=== PATIENT | male | born 1980 | race Caucasian/White ===

== ENCOUNTER 2024-12-23 16:36 | Inpatient (IN) | payer OTHER, MEDICAID ==
[~2024-12-23] VITALS: Ht 177.8 cm; Wt 100.9 kg
[2024-12-23] MEDS: succinylcholine 20mg/ml inj IV ONE ×2 (16:52→18:08)
[2024-12-23 17:15] VITALS: PULSE 124; RESP 16; O2SAT 96
[2024-12-23 17:20] LABS: ETHANOL < 10 MG/DL (<10)
[2024-12-23 17:34] LABS: ABG BASE EXCESS -17.7 mmol/L (-2.0-3.0); ABG HCO3 8.3 mmol/L (21.0-28.0); ABG OXYGEN SATURATION 99.1 % (94.0-98.0); ABG PH (T) 7.177 (7.350-7.450); ABG PO2 (T) 181.1 mmHg (83.0-108.0); ALLEN'S TEST POSITIVE; FCOHb 0.3 % (0.5-1.5); FHHb 0.9 % (0.0-5.0); FMetHb 0.4 % (0.0-1.5); FO2Hb 98.4 % (94.0-98.0); MODE VENT - APRV; PATIENT TEMPERATURE 36.8; PEEP 5 cm H2O; TIDAL VOLUME 475 mL; TOTAL HEMOGLOBIN 20.2 G/dl (13.5-17.5)
[2024-12-23 17:49] LABS: BASOPHILS % (AUTO) 0.3 % (0-1); EOSINOPHILS % (AUTO) 0.2 % (0-6); HEMATOCRIT 53.5 % (42.0-52.0); LYMPHOCYTES # (AUTO) 1.9 X10'3 (1.1-4.8); LYMPHOCYTES % (AUTO) 12.2 % (21-51); MEAN CORPUSCULAR HEMOGLOBIN 32.8 PG (27.0-31.0); MEAN CORPUSCULAR HGB CONC 33.8 g/dL (33.0-36.5); MEAN PLATELET VOLUME 11.7 FL (7.4-10.4); MONOCYTES # (AUTO) 1.5 X10'3 (0-0.9); MONOCYTES % (AUTO) 9.3 % (2-12); NEUTROPHILS # (AUTO) 12.3 X10'3 (1.8-7.7); PLATELET COUNT 243 X10'3 (140-440); RED BLOOD COUNT 5.52 X10'6 (4.70-6.10); RED CELL DISTRIBUTION WIDTH 13.3 % (11.5-14.5); WHITE BLOOD COUNT 15.7 X10'3 (4.5-11.0)
[2024-12-23 17:53] LABS: HEMOGLOBIN 18.1 g/dl (14.0-17.9)
[2024-12-23] MEDS: FENTANYL-0.9 % NACL/PF 100 ML IV SCH (18:06)
[2024-12-23] MEDS: MIDAZolam 5mg/ml 2ml vial ONE (18:06)
[2024-12-23] MEDS: propofol 1000mg/100ml bottle 100 ML IV SCH (18:07)
[2024-12-23] MEDS: etomidate 2mg/ml inj. IV ONE (18:08)
[2024-12-23] MEDS: NORepinephrine 8mg/ 250ml NS 250 ML IV PRN (18:09)
[2024-12-23] MEDS ORDERED: iohexol 350MG/ML 100ml bottle IV ONE (18:30)
[2024-12-23 18:39] LABS: ALANINE AMINOTRANSFERASE 305 U/L (12-78); ALBUMIN/GLOBULIN RATIO 0.9 (1.1-1.5); ALKALINE PHOSPHATASE 125 IU/L (46-116); ANION GAP 26 (8-16); BILIRUBIN,TOTAL 2.2 MG/DL (0.1-1.0); BLOOD UREA NITROGEN 28 MG/DL (7-18); BUN/CREATININE RATIO 5.9 (10.0-20.0); CHLORIDE 98 MMOL/L (99-107); CREATININE 4.78 MG/DL (0.60-1.10); GLUCOSE 338 MG/DL (70-104); SODIUM 137 MMOL/L (135-145); TOTAL PROTEIN 6.3 G/DL (6.4-8.2); eCRCL 20 ML/MIN; eGFR 13 ML/MIN
[2024-12-23 18:45] LABS: ASPARTATE AMINO TRANSFERASE 221 U/L (10-37); POTASSIUM 4.4 MMOL/L (3.5-5.1)
[2024-12-23 18:52] LABS: TOTAL CARBON DIOXIDE 13.1 MMOL/L (24-32)
[2024-12-23 19:58] LABS: CALCIUM < 5.0 MG/DL (8.5-10.1)
[2024-12-23] MEDS ORDERED: calcium gluconate inj. 2 GM in normal saline 100ml IV soln 100 ML IV ONE (20:00)
[2024-12-23] MEDS ORDERED: VANCOMYCIN 1,500MG inj. 1,500 MG in normal saline 500ml IV soln 300 ML IV SCH (20:00)
[2024-12-23] MEDS ORDERED: cefepime 2g/NS 100ml ADVANTAGE 100 ML IV SCH (20:00)
[2024-12-23 20:03] LABS: C-REACTIVE PROTEIN 14.61 MG/DL (0.0-0.5); CREATINE KINASE MB 6.7 ng/ml (0.3-3.6)
[2024-12-23 20:07] LABS: BILIRUBIN,URINE SMALL (Neg); CLARITY,URINE CLOUDY (Clear); COLOR,URINE YELLOW (Yellow); GLUCOSE, URINE NEGATIVE (Neg); KETONES,URINE TRACE mg/dl (Neg); LEUKOCYTE ESTERASE ,URINE NEGATIVE (Neg); OCCULT BLOOD,URINE LARGE (Neg); PROTEIN,URINE 100 mg/dl (Neg); UROBILINOGEN,URINE 0.2 E.U/dL (0.2-1.0)
[2024-12-23] MEDS: calcium chloride 100 MG/1 ML inj IV STA (20:08)
[2024-12-23] MEDS: CALCIUM GLUC 1gm/50ml NACL,iso 50 ML IV SCH (20:10)
[2024-12-23] MEDS: VANCOMYCIN 1.75GM/WATER FOR INJ (PEG) 350 ML IVPB IV ONE (20:13)
[2024-12-23 20:15] LABS: APTT 28 SECONDS (22-32); INR 1.3 INR; PROTHROMBIN TIME 13.2 SECONDS (9.0-12.0)
[2024-12-23 20:15] LABS: URINE AMPHETAMINE SCREEN NEGATIVE (Neg); URINE BARBITUATE SCREEN NEGATIVE (Neg); URINE BENZODIAZEPINES SCREEN NEGATIVE (Neg); URINE CANNABINOID SCREEN NEGATIVE (Neg); URINE COCAINE SCREEN NEGATIVE (Neg); URINE METHADONE SCREEN NEGATIVE (Neg); URINE OPIATE SCREEN NEGATIVE (Neg); URINE PHENCYCLIDINE SCREEN NEGATIVE (Neg)
[2024-12-23] MEDS: CEFEPIME 2gm in D5W 50mL 50 ML IV SCH (20:16)
[2024-12-23 20:21] VITALS: BP 117/83; PULSE 106; RESP 22; O2SAT 97
[2024-12-23 20:29] LABS: NITRITES, URINE NEGATIVE (Neg)
[2024-12-23 20:33] LABS: AMORPHOUS URATES 3+; BACTERIA,URINE 2+ /HPF (Neg); SQUAMOUS EPITHELIAL CELL,UR MODERATE /LPF (FEW); UA COLLECTION TYPE FOLEY CATH; WBC,URINE 0-4 /HPF (0-4)
[2024-12-23 20:34] LABS: FINE GRANULAR CAST 0-3 /LPF (NEGATIVE)
[2024-12-23 20:41] LABS: CREATINE KINASE 691 U/L (39-308); LIPASE > 375 U/L (16-77)
[2024-12-23] MEDS ORDERED: piperacillin/tazo 3.375gm/50ml 50 ML IV SCH (20:45)
[2024-12-23] MEDS: SODIUM BICARBONATE 150MEQ IN D5W 1,000 ML IV SCH (21:38)
[2024-12-23] MEDS: piperacillin/tazo 3.375gm/50ml 50 ML IV SCH (21:44)
[2024-12-23 22:25] LABS: APTT 27 SECONDS (22-32); D-DIMER 9.74 MG/L FEU (0-0.50); FIBRINOGEN 361 MG/DL (177-424); INR 1.2 INR; PROTHROMBIN TIME 12.2 SECONDS (9.0-12.0)
[2024-12-23 22:38] LABS: PLATELET COUNT 210 X10'3 (140-440)
[2024-12-23 23:15] VITALS: BP 97/71; PULSE 121; RESP 26; O2SAT 93
[2024-12-23] MEDS ORDERED: NORepinephrine 8 MG in NS 250 ML BAG (32 mcg/ml) IV ONE (23:30)
[2024-12-24] VITALS (17 sets, daily range): BP systolic 82–130; BP diastolic 38–71; PULSE 95–126; RESP 17–27; O2SAT 91–98
[2024-12-24] MEDS: sodium phosphate inj. 30 MMOL in dextrose 5%-water 250 ML IV ONE (00:25)
[2024-12-24] MEDS: acetaminophen 1,000mg/100ml IV 100 ML IV ONE ×2 (00:50→09:45)
[2024-12-24] MEDS: ringers solution, lacted 1,000 ML IV ONE ×3 (00:52→05:15)
[2024-12-24] MEDS: normal saline 1000ml 1,000 ML IV ONE ×4 (01:34→03:06)
[2024-12-24] MEDS: normal saline 1000ml 1,000 ML IV SCH (01:51)
[2024-12-24 02:11] LABS: MAGNESIUM 1.6 MG/DL (1.5-2.4)
[2024-12-24] MEDS: ringers solution, lacted 1,000 ML IV SCH (03:05)
[2024-12-24 03:52] LABS: ABG BASE EXCESS -12.5 mmol/L (-2.0-3.0); ABG OXYGEN SATURATION 96.8 % (94.0-98.0); ABG PCO2 (T) 29.9 mmHg (35.0-48.0); ABG PH (T) 7.258 (7.350-7.450); ABG PO2 (T) 96.4 mmHg (83.0-108.0); FCOHb 0.6 % (0.5-1.5); FHHb 3.2 % (0.0-5.0); FMetHb 0.3 % (0.0-1.5); FO2Hb 95.9 % (94.0-98.0); MODE ac/prvc; PATIENT TEMPERATURE 37.3; PEEP 5 cm H2O; RESPIRATORY RATE 16 b/min; TIDAL VOLUME 475 mL; TOTAL HEMOGLOBIN 14.6 G/dl (13.5-17.5)
[2024-12-24 05:32] LABS: MEAN PLATELET VOLUME 11.4 FL (7.4-10.4); MONOCYTES # (AUTO) 0.7 X10'3 (0-0.9); NEUTROPHILS # (AUTO) 5.9 X10'3 (1.8-7.7)
[2024-12-24 05:33] LABS: BASOPHILS % (AUTO) 0.3 % (0-1); EOSINOPHILS % (AUTO) 0.3 % (0-6); HEMATOCRIT 41.6 % (42.0-52.0); HEMOGLOBIN 14.6 g/dl (14.0-17.9); LYMPHOCYTES # (AUTO) 1.2 X10'3 (1.1-4.8); LYMPHOCYTES % (AUTO) 14.7 % (21-51); MEAN CORPUSCULAR HEMOGLOBIN 33.5 PG (27.0-31.0); MEAN CORPUSCULAR HGB CONC 35.1 g/dL (33.0-36.5); MEAN CORPUSCULAR VOLUME 95.5 FL (78-98); MONOCYTES % (AUTO) 9.3 % (2-12); NEUTROPHILS % (AUTO) 75.4 % (42-75); PLATELET COUNT 125 X10'3 (140-440); RED BLOOD COUNT 4.36 X10'6 (4.70-6.10); RED CELL DISTRIBUTION WIDTH 13.3 % (11.5-14.5); WHITE BLOOD COUNT 7.8 X10'3 (4.5-11.0)
[2024-12-24 05:55] LABS: ALANINE AMINOTRANSFERASE 281 U/L (12-78); ALBUMIN 1.9 G/DL (3.4-5.0); ALBUMIN/GLOBULIN RATIO 0.8 (1.1-1.5); ALKALINE PHOSPHATASE 72 IU/L (46-116); ANION GAP 12 (8-16); BILIRUBIN,TOTAL 1.8 MG/DL (0.1-1.0); BLOOD UREA NITROGEN 37 MG/DL (7-18); BUN/CREATININE RATIO 8.6 (10.0-20.0); CHLORIDE 106 MMOL/L (99-107); CREATININE 4.31 MG/DL (0.60-1.10); GLUCOSE 292 MG/DL (70-104); SODIUM 135 MMOL/L (135-145); TOTAL CARBON DIOXIDE 17.3 MMOL/L (24-32); TOTAL PROTEIN 4.2 G/DL (6.4-8.2); eCRCL 22 ML/MIN; eGFR 15 ML/MIN
[2024-12-24 06:19] LABS: CREATINE KINASE MB 32.1 ng/ml (0.3-3.6)
[2024-12-24 06:34] LABS: ASPARTATE AMINO TRANSFERASE 262 U/L (10-37); POTASSIUM 3.8 MMOL/L (3.5-5.1)
[2024-12-24 06:38] LABS: CALCIUM < 5.0 MG/DL (8.5-10.1)
[2024-12-24] MEDS ORDERED: calcium gluconate inj. 3 GM in normal saline 100ml IV soln 100 ML IV ONE (06:50)
[2024-12-24 06:52] LABS: LARGE PLATELETS FEW; PLATELET ESTIMATE DECREASED; TOTAL CELLS COUNTED 100
[2024-12-24 06:53] LABS: BURR CELLS 1+; TOXIC VACUOLATION FEW
[2024-12-24 07:05] LABS: CREATINE KINASE 3124 U/L (39-308)
[2024-12-24] MEDS: magnesium sulf-water 2g/50mL 50 ML IV ONE (07:10)
[2024-12-24] MEDS ORDERED: CALCIUM GLUC 1gm/50ml NACL,iso 50 ML IV SCH (07:20)
[2024-12-24] MEDS ORDERED: NO HOME MEDS (07:24)
[2024-12-24] MEDS: calcium gluconate inj. 3 GM in normal saline 100ml IV soln 100 ML IV ONE (07:34)
[2024-12-24] MEDS: calcium chloride inj. 1,000 MG in normal saline 100ml IV soln 100 ML IV ONE (08:42)
[2024-12-24] MEDS: LIDOcaine 1% W/epiNEPHrine 1:100,000 20ml vial SQ ONE (10:28)
[2024-12-24 10:57] LABS: ANION GAP 14 (8-16); BLOOD UREA NITROGEN 39 MG/DL (7-18); BUN/CREATININE RATIO 8.2 (10.0-20.0); CHLORIDE 102 MMOL/L (99-107); CREATININE 4.78 MG/DL (0.60-1.10); GLUCOSE 329 MG/DL (70-104); SODIUM 134 MMOL/L (135-145); TOTAL CARBON DIOXIDE 17.7 MMOL/L (24-32); eCRCL 20 ML/MIN; eGFR 13 ML/MIN
[2024-12-24 11:08] LABS: POTASSIUM 3.6 MMOL/L (3.5-5.1)
[2024-12-24 11:10] LABS: CALCIUM < 5.0 MG/DL (8.5-10.1)
[2024-12-24] MEDS: fentaNYL/PF 50MCG/1 ML 2ML syringe IV PRN (11:25)
[2024-12-24] MEDS ORDERED: acetaminophen 1,000mg/100ml IV 100 ML IV SCH (14:00)
[2024-12-24] MEDS: CIPROFLOXACIN 400MG/200ML premix IV SCH (14:24)
[2024-12-24] MEDS: pantoprazole 40 MG vial IV SCH (14:50)
[2024-12-24] MEDS ORDERED: magnesium Cl slow-release 64mg tablet PO PRN (15:00)
[2024-12-24] MEDS ORDERED: magnesium sulf-water 4G/100mL 100 ML IV PRN (15:00)
[2024-12-24] MEDS ORDERED: acetaminophen 325mg tablet PO PRN (15:00)
[2024-12-24] MEDS ORDERED: potassium Cl 20 mEq SR tablet PO PRN ×2 (15:00)
[2024-12-24] MEDS ORDERED: magnesium hydroxide 30ml (MOM) UD suspension PO PRN (15:00)
[2024-12-24] MEDS ORDERED: potassium Cl 40MEQ/1/2NS 520ml 520 ML IV PRN (15:00)
[2024-12-24] MEDS ORDERED: mag hydrox/Alum hydrox/simeth 30ml oral suspension PO PRN (15:00)
[2024-12-24] MEDS ORDERED: magnesium sulf-water 2g/50mL 50 ML IV PRN (15:00)
[2024-12-24] MEDS ORDERED: ondansetron/PF 4mg/2ml inj IV PRN (15:00)
[2024-12-24] MEDS ORDERED: morphine 2 MG/ML inj. syringe IV PRN ×2 (15:00)
[2024-12-24] MEDS ORDERED: MEROPENEM 1GM/NACL 50ML IVPB 50 ML IV SCH (16:00)
[2024-12-24] MEDS ORDERED: metroNIDAZOLE-Flagyl 500mg/NS 100 ML IV SCH (16:00)
[2024-12-24] MEDS: heparin, porcine 5000 units/ml vial SQ SCH (16:01)
[2024-12-24 16:16] LABS: ALBUMIN 1.8 G/DL (3.4-5.0); BLOOD UREA NITROGEN 43 MG/DL (7-18); CREATININE 5.38 MG/DL (0.60-1.10); GLUCOSE 366 MG/DL (70-104); TOTAL CARBON DIOXIDE 19.6 MMOL/L (24-32); eCRCL 18 ML/MIN; eGFR 12 ML/MIN
[2024-12-24 16:22] LABS: ANION GAP 14 (8-16); CHLORIDE 100 MMOL/L (99-107); SODIUM 134 MMOL/L (135-145)
[2024-12-24 16:24] LABS: POTASSIUM 3.3 MMOL/L (3.5-5.1)
[2024-12-24 16:27] LABS: CALCIUM < 5.0 MG/DL (8.5-10.1)
[2024-12-24] MEDS: docusate sod 100mg capsule PO SCH (18:50)
[2024-12-24] MEDS: K and/or MAG REPLACEMENT MC SCH (18:50)
[2024-12-24] MEDS ORDERED: glucagon, human recombinant 1mg kit SUBCUT PRN (19:10)
[2024-12-24] MEDS ORDERED: DEXTROSE 15 GM of carb/4 tabs (each vial/BOTTLE has 4 tablets) PO PRN ×2 (19:10)
[2024-12-24] MEDS ORDERED: dextrose 50%-water 50ml dispensing syringe IV PRN ×2 (19:10)
[2024-12-24] MEDS ORDERED: calcium chloride inj. 10,000 MG in normal saline 500ml IV soln 400 ML IV PRN (19:15)
[2024-12-24] MEDS ORDERED: BICARB DIALYSIS 4K/3 Ca2+sol 5,000 ML HE SCH (19:15)
[2024-12-24 19:34] LABS: EOSINOPHILS % (AUTO) 0.1 % (0-6); HEMOGLOBIN 14.3 g/dl (14.0-17.9); NEUTROPHILS # (AUTO) 16.7 X10'3 (1.8-7.7)
[2024-12-24 19:36] LABS: BASOPHILS % (AUTO) 0.1 % (0-1); HEMATOCRIT 41.8 % (42.0-52.0); LYMPHOCYTES # (AUTO) 0.8 X10'3 (1.1-4.8); LYMPHOCYTES % (AUTO) 4.5 % (21-51); MEAN CORPUSCULAR HEMOGLOBIN 32.9 PG (27.0-31.0); MEAN CORPUSCULAR HGB CONC 34.3 g/dL (33.0-36.5); MEAN PLATELET VOLUME 11.5 FL (7.4-10.4); MONOCYTES # (AUTO) 1.4 X10'3 (0-0.9); MONOCYTES % (AUTO) 7.2 % (2-12); NEUTROPHILS % (AUTO) 88.1 % (42-75); PLATELET COUNT 162 X10'3 (140-440); RED BLOOD COUNT 4.35 X10'6 (4.70-6.10); RED CELL DISTRIBUTION WIDTH 13.3 % (11.5-14.5)
[2024-12-24 19:47] LABS: APTT 33 SECONDS (22-32); INR 1.3 INR; PROTHROMBIN TIME 13.4 SECONDS (9.0-12.0)
[2024-12-24 19:49] LABS: ALANINE AMINOTRANSFERASE 290 U/L (12-78); ALBUMIN 1.7 G/DL (3.4-5.0); ALBUMIN/GLOBULIN RATIO 0.6 (1.1-1.5); ALKALINE PHOSPHATASE 82 IU/L (46-116); ANION GAP 15 (8-16); BLOOD UREA NITROGEN 44 MG/DL (7-18); BUN/CREATININE RATIO 7.7 (10.0-20.0); CHLORIDE 100 MMOL/L (99-107); CREATININE 5.68 MG/DL (0.60-1.10); GLUCOSE 319 MG/DL (70-104); SODIUM 133 MMOL/L (135-145); TOTAL CARBON DIOXIDE 18.2 MMOL/L (24-32); TOTAL PROTEIN 4.5 G/DL (6.4-8.2); eCRCL 17 ML/MIN; eGFR 11 ML/MIN
[2024-12-24] MEDS ORDERED: VANCOMYCIN/WATER FOR INJ (PEG) 750MG/150 ML IVPB IV SCH (20:00)
[2024-12-24 20:01] LABS: MAGNESIUM 1.5 MG/DL (1.5-2.4)
[2024-12-24 20:06] LABS: TOTAL CELLS COUNTED 100
[2024-12-24 20:07] LABS: BURR CELLS 2+; LARGE PLATELETS FEW; PLATELET ESTIMATE NORMAL
[2024-12-24 20:08] LABS: ASPARTATE AMINO TRANSFERASE 297 U/L (10-37); POTASSIUM 3.7 MMOL/L (3.5-5.1)
[2024-12-24 20:09] LABS: HEMOGLOBIN A1C 5.3 % (4.5-6.2)
[2024-12-24] MEDS: magnesium sulf-water 4G/100mL 100 ML IV PRN (20:15)
[2024-12-24] MEDS: MEROPENEM 500MG/50ML-NS IVPB 50 ML IV SCH (20:21)
[2024-12-24 20:26] LABS: AMYLASE 30 U/L (25-115); CREATINE KINASE 389 U/L (39-308)
[2024-12-24 20:29] LABS: CALCIUM < 5.0 MG/DL (8.5-10.1)
[2024-12-24 20:30] LABS: LIPASE > 375 U/L (16-77)
[2024-12-24] MEDS: calcium chloride inj. 1,000 MG in normal saline 100ml IV soln 100 ML IV PRN (20:32)
[2024-12-24 21:18] LABS: ABG HCO3 15.7 mmol/L (21.0-28.0); ABG OXYGEN SATURATION 96.9 % (94.0-98.0); ABG PCO2 (T) 45.1 mmHg (35.0-48.0); ABG PH (T) 7.156 (7.350-7.450); FCOHb 1.1 % (0.5-1.5); FHHb 3.1 % (0.0-5.0); FO2Hb 95.8 % (94.0-98.0); MODE ac/prvc; PATIENT TEMPERATURE 36.3; PEEP 5 cm H2O; RESPIRATORY RATE 16 b/min; TIDAL VOLUME 475 mL; TOTAL HEMOGLOBIN 14.6 G/dl (13.5-17.5)
[2024-12-24] MEDS: insulin glargine (Lantus) pen - multi-dose SQ SCH (21:27)
[2024-12-24 22:25] LABS: BASOPHILS % (AUTO) 0.1 % (0-1); EOSINOPHILS % (AUTO) 0 % (0-6); HEMATOCRIT 42.1 % (42.0-52.0); HEMOGLOBIN 14.3 g/dl (14.0-17.9); LYMPHOCYTES # (AUTO) 0.6 X10'3 (1.1-4.8); LYMPHOCYTES % (AUTO) 3.3 % (21-51); MEAN CORPUSCULAR HEMOGLOBIN 32.5 PG (27.0-31.0); MEAN CORPUSCULAR HGB CONC 33.9 g/dL (33.0-36.5); MEAN CORPUSCULAR VOLUME 96.1 FL (78-98); MONOCYTES # (AUTO) 1.1 X10'3 (0-0.9); MONOCYTES % (AUTO) 6.3 % (2-12); NEUTROPHILS # (AUTO) 16.4 X10'3 (1.8-7.7); NEUTROPHILS % (AUTO) 90.3 % (42-75); PLATELET COUNT 171 X10'3 (140-440); RED BLOOD COUNT 4.38 X10'6 (4.70-6.10); RED CELL DISTRIBUTION WIDTH 13.7 % (11.5-14.5); WHITE BLOOD COUNT 18.1 X10'3 (4.5-11.0)
[2024-12-24 22:32] LABS: ALBUMIN 1.8 G/DL (3.4-5.0); ANION GAP 13 (8-16); BLOOD UREA NITROGEN 42 MG/DL (7-18); BUN/CREATININE RATIO 8.3 (10.0-20.0); CHLORIDE 101 MMOL/L (99-107); CREATININE 5.04 MG/DL (0.60-1.10); GLUCOSE 309 MG/DL (70-104); MAGNESIUM 2.4 MG/DL (1.5-2.4); SODIUM 134 MMOL/L (135-145); TOTAL CARBON DIOXIDE 19.8 MMOL/L (24-32); eCRCL 19 ML/MIN; eGFR 12 ML/MIN
[2024-12-24 22:36] LABS: PHOSPHORUS 4.3 MG/DL (2.3-4.5); POTASSIUM 3.8 MMOL/L (3.5-5.1)
[2024-12-24] MEDS: INSULIN LISPRO 100 UNIT/ML INSULN.PEN MULTI-DOSE SQ SCH (22:36)
[2024-12-24 22:43] LABS: CALCIUM CVVH 4.6 MG/DL (8.5-10.1)
[2024-12-24 22:44] LABS: CALCIUM < 5.0 MG/DL (8.5-10.1)
[2024-12-24 23:21] LABS: BASOPHILS # (AUTO) 0.1 X10'3 (0-0.2); BASOPHILS % (AUTO) 0.3 % (0-1); EOSINOPHILS % (AUTO) 0 % (0-6); HEMATOCRIT 43.4 % (42.0-52.0); HEMOGLOBIN 14.7 g/dl (14.0-17.9); LYMPHOCYTES # (AUTO) 0.6 X10'3 (1.1-4.8); LYMPHOCYTES % (AUTO) 3.2 % (21-51); MEAN CORPUSCULAR HEMOGLOBIN 32.7 PG (27.0-31.0); MEAN CORPUSCULAR HGB CONC 33.9 g/dL (33.0-36.5); MEAN CORPUSCULAR VOLUME 96.5 FL (78-98); MEAN PLATELET VOLUME 11.3 FL (7.4-10.4); MONOCYTES # (AUTO) 1.3 X10'3 (0-0.9); MONOCYTES % (AUTO) 6.5 % (2-12); NEUTROPHILS # (AUTO) 17.8 X10'3 (1.8-7.7); PLATELET COUNT 167 X10'3 (140-440); RED CELL DISTRIBUTION WIDTH 13.4 % (11.5-14.5); WHITE BLOOD COUNT 19.8 X10'3 (4.5-11.0)
[2024-12-24 23:39] LABS: ALBUMIN 1.8 G/DL (3.4-5.0); ANION GAP 15 (8-16); BLOOD UREA NITROGEN 38 MG/DL (7-18); BUN/CREATININE RATIO 7.7 (10.0-20.0); CHLORIDE 99 MMOL/L (99-107); CREATININE 4.95 MG/DL (0.60-1.10); GLUCOSE 296 MG/DL (70-104); MAGNESIUM 2.1 MG/DL (1.5-2.4); PHOSPHORUS 4.4 MG/DL (2.3-4.5); POTASSIUM 3.9 MMOL/L (3.5-5.1); SODIUM 133 MMOL/L (135-145); TOTAL CARBON DIOXIDE 19.1 MMOL/L (24-32); eGFR 13 ML/MIN
[2024-12-24 23:48] LABS: CALCIUM CVVH 4.3 MG/DL (8.5-10.1)
[2024-12-25] VITALS (39 sets, daily range): BP systolic 92–121; BP diastolic 38–60; PULSE 100–115; RESP 12–27; TEMP 96.2–97.1; O2SAT 85–97
[2024-12-25 00:24] LABS: BASOPHILS % (AUTO) 0.2 % (0-1); EOSINOPHILS % (AUTO) 0.1 % (0-6); HEMATOCRIT 41.6 % (42.0-52.0); HEMOGLOBIN 14.2 g/dl (14.0-17.9); LYMPHOCYTES # (AUTO) 0.8 X10'3 (1.1-4.8); LYMPHOCYTES % (AUTO) 4.4 % (21-51); MEAN CORPUSCULAR HEMOGLOBIN 32.7 PG (27.0-31.0); MEAN CORPUSCULAR HGB CONC 34.1 g/dL (33.0-36.5); MEAN CORPUSCULAR VOLUME 96.1 FL (78-98); MEAN PLATELET VOLUME 11.3 FL (7.4-10.4); MONOCYTES # (AUTO) 1.3 X10'3 (0-0.9); MONOCYTES % (AUTO) 6.9 % (2-12); NEUTROPHILS # (AUTO) 16.1 X10'3 (1.8-7.7); NEUTROPHILS % (AUTO) 88.4 % (42-75); PLATELET COUNT 155 X10'3 (140-440); RED BLOOD COUNT 4.33 X10'6 (4.70-6.10); RED CELL DISTRIBUTION WIDTH 13.5 % (11.5-14.5); WHITE BLOOD COUNT 18.2 X10'3 (4.5-11.0)
[2024-12-25 00:37] LABS: ALBUMIN 1.7 G/DL (3.4-5.0); ANION GAP 12 (8-16); BLOOD UREA NITROGEN 39 MG/DL (7-18); BUN/CREATININE RATIO 8.1 (10.0-20.0); CHLORIDE 102 MMOL/L (99-107); CREATININE 4.81 MG/DL (0.60-1.10); GLUCOSE 278 MG/DL (70-104); MAGNESIUM 2.1 MG/DL (1.5-2.4); SODIUM 135 MMOL/L (135-145); TOTAL CARBON DIOXIDE 20.6 MMOL/L (24-32); eGFR 13 ML/MIN
[2024-12-25 00:41] LABS: PHOSPHORUS 4.5 MG/DL (2.3-4.5); POTASSIUM 3.7 MMOL/L (3.5-5.1)
[2024-12-25 00:46] LABS: CALCIUM CVVH 5.4 MG/DL (8.5-10.1)
[2024-12-25 01:15] LABS: PLATELET ESTIMATE NORMAL; TOTAL CELLS COUNTED 100
[2024-12-25 01:16] LABS: BURR CELLS 2+; LARGE PLATELETS FEW
[2024-12-25 01:31] LABS: BASOPHILS % (AUTO) 0.1 % (0-1); EOSINOPHILS % (AUTO) 0 % (0-6); HEMATOCRIT 43.3 % (42.0-52.0); HEMOGLOBIN 14.9 g/dl (14.0-17.9); LYMPHOCYTES # (AUTO) 0.7 X10'3 (1.1-4.8); LYMPHOCYTES % (AUTO) 3.8 % (21-51); MEAN CORPUSCULAR HEMOGLOBIN 32.8 PG (27.0-31.0); MEAN CORPUSCULAR HGB CONC 34.3 g/dL (33.0-36.5); MEAN CORPUSCULAR VOLUME 95.6 FL (78-98); MEAN PLATELET VOLUME 10.8 FL (7.4-10.4); MONOCYTES # (AUTO) 1.1 X10'3 (0-0.9); NEUTROPHILS # (AUTO) 17.1 X10'3 (1.8-7.7); NEUTROPHILS % (AUTO) 90.1 % (42-75); PLATELET COUNT 147 X10'3 (140-440); RED BLOOD COUNT 4.53 X10'6 (4.70-6.10); RED CELL DISTRIBUTION WIDTH 13.8 % (11.5-14.5); WHITE BLOOD COUNT 18.9 X10'3 (4.5-11.0)
[2024-12-25 01:50] LABS: ALBUMIN 1.8 G/DL (3.4-5.0); ANION GAP 15 (8-16); BLOOD UREA NITROGEN 35 MG/DL (7-18); BUN/CREATININE RATIO 7.3 (10.0-20.0); CHLORIDE 100 MMOL/L (99-107); CREATININE 4.79 MG/DL (0.60-1.10); GLUCOSE 265 MG/DL (70-104); SODIUM 133 MMOL/L (135-145); TOTAL CARBON DIOXIDE 17.7 MMOL/L (24-32); eGFR 13 ML/MIN
[2024-12-25 01:53] LABS: PHOSPHORUS 5.2 MG/DL (2.3-4.5); POTASSIUM 3.8 MMOL/L (3.5-5.1)
[2024-12-25 01:58] LABS: CALCIUM CVVH 4.9 MG/DL (8.5-10.1)
[2024-12-25] MEDS: sodium chloride 3% IV.soln 500 ML IV SCH (02:39)
[2024-12-25 03:03] LABS: ABG BASE EXCESS -10.8 mmol/L (-2.0-3.0); ABG HCO3 15.7 mmol/L (21.0-28.0); ABG PH (T) 7.253 (7.350-7.450); ABG PO2 (T) 72.7 mmHg (83.0-108.0); FCOHb 1.8 % (0.5-1.5); FHHb 3.9 % (0.0-5.0); FMetHb 0.3 % (0.0-1.5); MODE ac/prvc; PATIENT TEMPERATURE 36.1; PEEP 5 cm H2O; RESPIRATORY RATE 20 b/min; TIDAL VOLUME 475 mL; TOTAL HEMOGLOBIN 15.6 G/dl (13.5-17.5)
[2024-12-25 03:21] LABS: RED CELL DISTRIBUTION WIDTH 13.9 % (11.5-14.5); WHITE BLOOD COUNT 18.4 X10'3 (4.5-11.0)
[2024-12-25 03:22] LABS: BASOPHILS % (AUTO) 0.1 % (0-1); EOSINOPHILS % (AUTO) 0 % (0-6); HEMATOCRIT 45.8 % (42.0-52.0); HEMOGLOBIN 15.7 g/dl (14.0-17.9); LYMPHOCYTES # (AUTO) 0.6 X10'3 (1.1-4.8); LYMPHOCYTES % (AUTO) 3.3 % (21-51); MEAN CORPUSCULAR HGB CONC 34.3 g/dL (33.0-36.5); MEAN CORPUSCULAR VOLUME 96.1 FL (78-98); MEAN PLATELET VOLUME 11.6 FL (7.4-10.4); MONOCYTES # (AUTO) 1.1 X10'3 (0-0.9); MONOCYTES % (AUTO) 6.1 % (2-12); NEUTROPHILS # (AUTO) 16.6 X10'3 (1.8-7.7); NEUTROPHILS % (AUTO) 90.5 % (42-75); PLATELET COUNT 151 X10'3 (140-440); RED BLOOD COUNT 4.76 X10'6 (4.70-6.10)
[2024-12-25 04:13] LABS: ALBUMIN 1.9 G/DL (3.4-5.0); ANION GAP 15 (8-16); BLOOD UREA NITROGEN 34 MG/DL (7-18); BUN/CREATININE RATIO 7.6 (10.0-20.0); CHLORIDE 100 MMOL/L (99-107); CREATININE 4.49 MG/DL (0.60-1.10); GLUCOSE 233 MG/DL (70-104); SODIUM 133 MMOL/L (135-145); TOTAL CARBON DIOXIDE 18.4 MMOL/L (24-32); eCRCL 21 ML/MIN; eGFR 14 ML/MIN
[2024-12-25 04:43] LABS: CALCIUM 5.7 MG/DL (8.5-10.1); PHOSPHORUS 4.2 MG/DL (2.3-4.5); POTASSIUM 3.6 MMOL/L (3.5-5.1)
[2024-12-25 04:44] LABS: CALCIUM CVVH 5.7 MG/DL (8.5-10.1)
[2024-12-25] MEDS: BICARB DIALYSIS 4K/3 Ca2+sol 5,000 ML HE SCH (04:58)
[2024-12-25 08:44] LABS: BASOPHILS % (AUTO) 0.1 % (0-1); EOSINOPHILS % (AUTO) 0.2 % (0-6); HEMATOCRIT 44.6 % (42.0-52.0); HEMOGLOBIN 15.1 g/dl (14.0-17.9); LYMPHOCYTES # (AUTO) 0.7 X10'3 (1.1-4.8); LYMPHOCYTES % (AUTO) 3.7 % (21-51); MEAN CORPUSCULAR HEMOGLOBIN 32.6 PG (27.0-31.0); MEAN CORPUSCULAR HGB CONC 33.9 g/dL (33.0-36.5); MEAN PLATELET VOLUME 10.3 FL (7.4-10.4); MONOCYTES # (AUTO) 1.1 X10'3 (0-0.9); MONOCYTES % (AUTO) 6.1 % (2-12); NEUTROPHILS # (AUTO) 16.5 X10'3 (1.8-7.7); NEUTROPHILS % (AUTO) 89.9 % (42-75); PLATELET COUNT 102 X10'3 (140-440); RED BLOOD COUNT 4.65 X10'6 (4.70-6.10); RED CELL DISTRIBUTION WIDTH 13.5 % (11.5-14.5); WHITE BLOOD COUNT 18.4 X10'3 (4.5-11.0)
[2024-12-25] MEDS: potassium Cl 40MEQ/270ML bag 270 ML IV PRN (08:46)
[2024-12-25 08:54] LABS: ALBUMIN 1.9 G/DL (3.4-5.0); ANION GAP 11 (8-16); BLOOD UREA NITROGEN 30 MG/DL (7-18); BUN/CREATININE RATIO 7.8 (10.0-20.0); CHLORIDE 103 MMOL/L (99-107); CREATININE 3.83 MG/DL (0.60-1.10); GLUCOSE 213 MG/DL (70-104); MAGNESIUM 1.9 MG/DL (1.5-2.4); PHOSPHORUS 4.3 MG/DL (2.3-4.5); POTASSIUM 3.6 MMOL/L (3.5-5.1); SODIUM 138 MMOL/L (135-145); TOTAL CARBON DIOXIDE 24.4 MMOL/L (24-32); eGFR 17 ML/MIN
[2024-12-25] MEDS: INSULIN LISPRO 100 UNIT/ML INSULN.PEN MULTI-DOSE SQ SCH (08:59)
[2024-12-25] MEDS: COMMUNICATION ORDER 1 EA MISC MC ONE (09:00)
[2024-12-25 09:12] LABS: PLATELET ESTIMATE DECREASED; TOTAL CELLS COUNTED 100
[2024-12-25 09:14] LABS: CALCIUM CVVH 5.4 MG/DL (8.5-10.1)
[2024-12-25] MEDS: CALCIUM GLUC 1gm/50ml NACL,iso 50 ML IV ONE (12:09)
[2024-12-25 14:57] LABS: BASOPHILS % (AUTO) 0.2 % (0-1); EOSINOPHILS % (AUTO) 0.1 % (0-6); HEMATOCRIT 44.1 % (42.0-52.0); LYMPHOCYTES # (AUTO) 0.6 X10'3 (1.1-4.8); LYMPHOCYTES % (AUTO) 3.6 % (21-51); MEAN CORPUSCULAR HEMOGLOBIN 32.3 PG (27.0-31.0); MEAN CORPUSCULAR VOLUME 95.1 FL (78-98); MEAN PLATELET VOLUME 10.5 FL (7.4-10.4); MONOCYTES # (AUTO) 0.9 X10'3 (0-0.9); MONOCYTES % (AUTO) 5.4 % (2-12); NEUTROPHILS # (AUTO) 14.5 X10'3 (1.8-7.7); NEUTROPHILS % (AUTO) 90.7 % (42-75); PLATELET COUNT 77 X10'3 (140-440); RED BLOOD COUNT 4.64 X10'6 (4.70-6.10); RED CELL DISTRIBUTION WIDTH 13.7 % (11.5-14.5)
[2024-12-25 15:13] LABS: ALBUMIN 1.8 G/DL (3.4-5.0); ANION GAP 8 (8-16); BLOOD UREA NITROGEN 25 MG/DL (7-18); BUN/CREATININE RATIO 7.4 (10.0-20.0); CHLORIDE 104 MMOL/L (99-107); CHOL/HDL RATIO 6.1 (0.00-4.99); CHOLESTEROL 104 MG/DL (0-200); CREATININE 3.39 MG/DL (0.60-1.10); GLUCOSE 225 MG/DL (70-104); HDL CHOLESTEROL 17 MG/DL (35-60); LDL CHOLESTEROL 18 MG/DL (50-100); MAGNESIUM 1.7 MG/DL (1.5-2.4); SODIUM 138 MMOL/L (135-145); TOTAL CARBON DIOXIDE 26.1 MMOL/L (24-32); TRIGLYCERIDES 405 MG/DL (20-135); eGFR 20 ML/MIN
[2024-12-25 15:16] LABS: PHOSPHORUS 3.5 MG/DL (2.3-4.5); POTASSIUM 3.9 MMOL/L (3.5-5.1)
[2024-12-25 15:18] LABS: CALCIUM CVVH 5.2 MG/DL (8.5-10.1)
[2024-12-25] MEDS ORDERED: DEXTROSE 15 GM of carb/4 tabs (each vial/BOTTLE has 4 tablets) OGT PRN ×2 (16:44)
[2024-12-25] MEDS ORDERED: magnesium hydroxide 30ml (MOM) UD suspension OGT PRN (16:46)
[2024-12-25] MEDS ORDERED: mag hydrox/Alum hydrox/simeth 30ml oral suspension OGT PRN (16:46)
[2024-12-25] MEDS ORDERED: POTASSIUM BICARB 20meq eff tab 20 MEQ TABLET.EFF OGT PRN ×2 (16:50)
[2024-12-25] MEDS: CALCIUM GLUC 1gm/50ml NACL,iso 50 ML IV PRN (17:54)
[2024-12-25] MEDS: docusate sodium 100mg/10ml UD cup OGT SCH (18:27)
[2024-12-25 19:20] LABS: ABG BASE EXCESS -5.8 mmol/L (-2.0-3.0); ABG OXYGEN SATURATION 90.9 % (94.0-98.0); ABG PCO2 (T) 49.5 mmHg (35.0-48.0); ABG PO2 (T) 56.5 mmHg (83.0-108.0); FCOHb 1.5 % (0.5-1.5); FHHb 8.9 % (0.0-5.0); FMetHb 0.3 % (0.0-1.5); FO2Hb 89.3 % (94.0-98.0); MODE VENT - CPAP; PEEP 5 cm H2O; TOTAL HEMOGLOBIN 14.5 G/dl (13.5-17.5)
[2024-12-25] MEDS: sodium bicarbonate 1meq/ml inj 150 ML in dextrose 5%-water 1,000 ML IV SCH (19:22)
[2024-12-25 20:40] LABS: LYMPHOCYTES # (AUTO) 0.5 X10'3 (1.1-4.8)
[2024-12-25 20:42] LABS: BASOPHILS % (AUTO) 0.2 % (0-1); EOSINOPHILS % (AUTO) 0.2 % (0-6); HEMATOCRIT 41.3 % (42.0-52.0); HEMOGLOBIN 14.2 g/dl (14.0-17.9); LYMPHOCYTES % (AUTO) 3.4 % (21-51); MEAN CORPUSCULAR HEMOGLOBIN 32.9 PG (27.0-31.0); MEAN CORPUSCULAR HGB CONC 34.4 g/dL (33.0-36.5); MEAN CORPUSCULAR VOLUME 95.8 FL (78-98); MEAN PLATELET VOLUME 11.1 FL (7.4-10.4); MONOCYTES # (AUTO) 0.9 X10'3 (0-0.9); NEUTROPHILS # (AUTO) 13.9 X10'3 (1.8-7.7); NEUTROPHILS % (AUTO) 90.2 % (42-75); PLATELET COUNT 86 X10'3 (140-440); RED BLOOD COUNT 4.31 X10'6 (4.70-6.10); RED CELL DISTRIBUTION WIDTH 13.7 % (11.5-14.5); WHITE BLOOD COUNT 15.4 X10'3 (4.5-11.0)
[2024-12-25 21:00] LABS: ALBUMIN 1.6 G/DL (3.4-5.0); ANION GAP 11 (8-16); BLOOD UREA NITROGEN 23 MG/DL (7-18); BUN/CREATININE RATIO 6.7 (10.0-20.0); CHLORIDE 103 MMOL/L (99-107); CREATININE 3.45 MG/DL (0.60-1.10); GLUCOSE 258 MG/DL (70-104); MAGNESIUM 2.5 MG/DL (1.5-2.4); SODIUM 137 MMOL/L (135-145); TOTAL CARBON DIOXIDE 23.5 MMOL/L (24-32); eGFR 19 ML/MIN
[2024-12-25 21:05] LABS: PHOSPHORUS 3.4 MG/DL (2.3-4.5); POTASSIUM 3.9 MMOL/L (3.5-5.1)
[2024-12-25 21:06] LABS: CALCIUM CVVH 4.3 MG/DL (8.5-10.1)
[2024-12-25] MEDS: albumin (human) 25% 100 ML IV solution IV ONE (21:35)
[2024-12-25] MEDS: calcium chloride 100 MG/1 ML inj IV ONE (21:35)
[2024-12-26] VITALS (37 sets, daily range): BP systolic 96–136; BP diastolic 48–68; PULSE 96–117; RESP 20–32; TEMP 98.9; O2SAT 90–97
[2024-12-26 00:34] LABS: BASOPHILS % (AUTO) 0.1 % (0-1); EOSINOPHILS % (AUTO) 0.2 % (0-6); LYMPHOCYTES # (AUTO) 0.6 X10'3 (1.1-4.8); MONOCYTES # (AUTO) 0.9 X10'3 (0-0.9)
[2024-12-26 00:37] LABS: HEMATOCRIT 39.9 % (42.0-52.0); HEMOGLOBIN 13.6 g/dl (14.0-17.9); LYMPHOCYTES % (AUTO) 4.1 % (21-51); MEAN CORPUSCULAR HEMOGLOBIN 32.2 PG (27.0-31.0); MEAN CORPUSCULAR VOLUME 94.8 FL (78-98); MEAN PLATELET VOLUME 11.2 FL (7.4-10.4); MONOCYTES % (AUTO) 6.5 % (2-12); NEUTROPHILS # (AUTO) 12.1 X10'3 (1.8-7.7); NEUTROPHILS % (AUTO) 89.1 % (42-75); PLATELET COUNT 74 X10'3 (140-440); RED BLOOD COUNT 4.21 X10'6 (4.70-6.10); RED CELL DISTRIBUTION WIDTH 13.7 % (11.5-14.5); WHITE BLOOD COUNT 13.5 X10'3 (4.5-11.0)
[2024-12-26 00:52] LABS: ALBUMIN 1.6 G/DL (3.4-5.0); ANION GAP 11 (8-16); BLOOD UREA NITROGEN 20 MG/DL (7-18); BUN/CREATININE RATIO 6.3 (10.0-20.0); CHLORIDE 104 MMOL/L (99-107); CREATININE 3.16 MG/DL (0.60-1.10); GLUCOSE 227 MG/DL (70-104); MAGNESIUM 2.2 MG/DL (1.5-2.4); SODIUM 138 MMOL/L (135-145); TOTAL CARBON DIOXIDE 23.4 MMOL/L (24-32); eGFR 21 ML/MIN
[2024-12-26 00:53] LABS: PHOSPHORUS 4.6 MG/DL (2.3-4.5); POTASSIUM 3.8 MMOL/L (3.5-5.1)
[2024-12-26 00:59] LABS: CALCIUM CVVH 5.4 MG/DL (8.5-10.1)
[2024-12-26 01:08] LABS: PLATELET ESTIMATE DECREASED; TOTAL CELLS COUNTED 100
[2024-12-26 01:10] LABS: ANISOCYTOSIS FEW; BURR CELLS 1+
[2024-12-26] MEDS: CALCIUM GLUC 1gm/50ml NACL,iso 50 ML IV PRN ×2 (01:16→18:50)
[2024-12-26] MEDS: sodium chloride 3% IV.soln 500 ML IV SCH (02:57)
[2024-12-26 03:37] LABS: ABG BASE EXCESS -3.3 mmol/L (-2.0-3.0); ABG HCO3 23.4 mmol/L (21.0-28.0); ABG OXYGEN SATURATION 91.1 % (94.0-98.0); ABG PCO2 (T) 47.7 mmHg (35.0-48.0); ABG PH (T) 7.306 (7.350-7.450); ABG PO2 (T) 55.6 mmHg (83.0-108.0); FCOHb 1.6 % (0.5-1.5); FHHb 8.7 % (0.0-5.0); FMetHb 0.3 % (0.0-1.5); FO2Hb 89.4 % (94.0-98.0); MODE ac/prvc; PATIENT TEMPERATURE 36.5; PEEP 5 cm H2O; RESPIRATORY RATE 20 b/min; TIDAL VOLUME 475 mL; TOTAL HEMOGLOBIN 13.7 G/dl (13.5-17.5)
[2024-12-26 03:56] LABS: ANION GAP 11 (8-16); BLOOD UREA NITROGEN 21 MG/DL (7-18); BUN/CREATININE RATIO 6.8 (10.0-20.0); CHLORIDE 104 MMOL/L (99-107); CREATININE 3.07 MG/DL (0.60-1.10); GLUCOSE 235 MG/DL (70-104); MAGNESIUM 1.6 MG/DL (1.5-2.4); SODIUM 139 MMOL/L (135-145); TOTAL CARBON DIOXIDE 23.9 MMOL/L (24-32); eGFR 22 ML/MIN
[2024-12-26 03:58] LABS: CALCIUM CVVH 5.2 MG/DL (8.5-10.1); PHOSPHORUS 2.6 MG/DL (2.3-4.5); POTASSIUM 3.9 MMOL/L (3.5-5.1)
[2024-12-26 04:06] LABS: BASOPHILS % (AUTO) 0.1 % (0-1); EOSINOPHILS % (AUTO) 0.2 % (0-6); HEMATOCRIT 39.8 % (42.0-52.0); HEMOGLOBIN 13.2 g/dl (14.0-17.9); LYMPHOCYTES # (AUTO) 0.6 X10'3 (1.1-4.8); LYMPHOCYTES % (AUTO) 4.6 % (21-51); MEAN CORPUSCULAR HGB CONC 33.3 g/dL (33.0-36.5); MEAN CORPUSCULAR VOLUME 96.3 FL (78-98); MEAN PLATELET VOLUME 10.9 FL (7.4-10.4); MONOCYTES # (AUTO) 0.8 X10'3 (0-0.9); NEUTROPHILS # (AUTO) 11.2 X10'3 (1.8-7.7); NEUTROPHILS % (AUTO) 89.1 % (42-75); PLATELET COUNT 70 X10'3 (140-440); RED BLOOD COUNT 4.14 X10'6 (4.70-6.10); RED CELL DISTRIBUTION WIDTH 13.6 % (11.5-14.5); WHITE BLOOD COUNT 12.6 X10'3 (4.5-11.0)
[2024-12-26] MEDS: LORazepam 2 mg/ml vial IV PRN (05:25)
[2024-12-26] MEDS: insulin regular, human U-100 10ml vial - multi-dose SQ SCH (07:48)
[2024-12-26 08:09] LABS: EOSINOPHILS % (AUTO) 0.1 % (0-6); HEMATOCRIT 37.9 % (42.0-52.0); HEMOGLOBIN 12.8 g/dl (14.0-17.9); LYMPHOCYTES # (AUTO) 0.5 X10'3 (1.1-4.8); MEAN CORPUSCULAR HGB CONC 33.9 g/dL (33.0-36.5)
[2024-12-26 08:11] LABS: BASOPHILS % (AUTO) 0.2 % (0-1); LYMPHOCYTES % (AUTO) 3.9 % (21-51); MEAN CORPUSCULAR HEMOGLOBIN 32.2 PG (27.0-31.0); MEAN PLATELET VOLUME 11.2 FL (7.4-10.4); MONOCYTES # (AUTO) 0.7 X10'3 (0-0.9); MONOCYTES % (AUTO) 5.6 % (2-12); NEUTROPHILS # (AUTO) 10.7 X10'3 (1.8-7.7); NEUTROPHILS % (AUTO) 90.2 % (42-75); PLATELET COUNT 75 X10'3 (140-440); RED BLOOD COUNT 3.99 X10'6 (4.70-6.10); RED CELL DISTRIBUTION WIDTH 13.3 % (11.5-14.5); WHITE BLOOD COUNT 11.8 X10'3 (4.5-11.0)
[2024-12-26 08:24] LABS: ALBUMIN 1.9 G/DL (3.4-5.0); ANION GAP 13 (8-16); BLOOD UREA NITROGEN 21 MG/DL (7-18); BUN/CREATININE RATIO 7.1 (10.0-20.0); CHLORIDE 105 MMOL/L (99-107); CREATININE 2.96 MG/DL (0.60-1.10); GLUCOSE 230 MG/DL (70-104); MAGNESIUM 2.2 MG/DL (1.5-2.4); SODIUM 141 MMOL/L (135-145); TOTAL CARBON DIOXIDE 23.5 MMOL/L (24-32); eGFR 23 ML/MIN
[2024-12-26 08:28] LABS: PHOSPHORUS 1.8 MG/DL (2.3-4.5); POTASSIUM 3.8 MMOL/L (3.5-5.1)
[2024-12-26 08:34] LABS: CALCIUM CVVH 5.4 MG/DL (8.5-10.1)
[2024-12-26] MEDS: calcium chloride 100 MG/1 ML inj IV ONE (09:00)
[2024-12-26 10:38] LABS: ABG BASE EXCESS -3.8 mmol/L (-2.0-3.0); ABG HCO3 22.4 mmol/L (21.0-28.0); ABG OXYGEN SATURATION 91.6 % (94.0-98.0); ABG PCO2 (T) 45.2 mmHg (35.0-48.0); ABG PH (T) 7.313 (7.350-7.450); ABG PO2 (T) 60.9 mmHg (83.0-108.0); FCOHb 1.4 % (0.5-1.5); FHHb 8.3 % (0.0-5.0); FMetHb 0.3 % (0.0-1.5); MODE VENT - AC; PATIENT TEMPERATURE 36.9; PEEP 10 cm H2O; RESPIRATORY RATE 24 b/min; TIDAL VOLUME 350 mL; TOTAL HEMOGLOBIN 13.4 G/dl (13.5-17.5)
[2024-12-26] MEDS: potassium phosphate inj 30 MMOL in normal saline 500ml IV soln 500 ML IV ONE (11:21)
[2024-12-26 12:25] LABS: HEMOGLOBIN 12.7 g/dl (14.0-17.9); MEAN CORPUSCULAR HEMOGLOBIN 32.7 PG (27.0-31.0); RED BLOOD COUNT 3.88 X10'6 (4.70-6.10)
[2024-12-26 12:26] LABS: BASOPHILS % (AUTO) 0.1 % (0-1); EOSINOPHILS % (AUTO) 0.2 % (0-6); LYMPHOCYTES # (AUTO) 0.4 X10'3 (1.1-4.8); LYMPHOCYTES % (AUTO) 3.6 % (21-51); MEAN CORPUSCULAR HGB CONC 34.2 g/dL (33.0-36.5); MEAN CORPUSCULAR VOLUME 95.5 FL (78-98); MEAN PLATELET VOLUME 10.9 FL (7.4-10.4); MONOCYTES # (AUTO) 0.7 X10'3 (0-0.9); MONOCYTES % (AUTO) 6.3 % (2-12); NEUTROPHILS # (AUTO) 10.6 X10'3 (1.8-7.7); NEUTROPHILS % (AUTO) 89.8 % (42-75); PLATELET COUNT 71 X10'3 (140-440); RED CELL DISTRIBUTION WIDTH 13.9 % (11.5-14.5); WHITE BLOOD COUNT 11.8 X10'3 (4.5-11.0)
[2024-12-26 12:39] LABS: ALBUMIN 1.9 G/DL (3.4-5.0); ANION GAP 7 (8-16); BLOOD UREA NITROGEN 21 MG/DL (7-18); BUN/CREATININE RATIO 7.7 (10.0-20.0); CHLORIDE 109 MMOL/L (99-107); CREATININE 2.71 MG/DL (0.60-1.10); GLUCOSE 246 MG/DL (70-104); MAGNESIUM 2.1 MG/DL (1.5-2.4); SODIUM 142 MMOL/L (135-145); TOTAL CARBON DIOXIDE 26.4 MMOL/L (24-32); eGFR 25 ML/MIN
[2024-12-26 12:43] LABS: CALCIUM CVVH 5.9 MG/DL (8.5-10.1); PHOSPHORUS 2.7 MG/DL (2.3-4.5); POTASSIUM 4.1 MMOL/L (3.5-5.1)
[2024-12-26 16:23] LABS: BASOPHILS % (AUTO) 0.1 % (0-1); EOSINOPHILS % (AUTO) 0.2 % (0-6); HEMOGLOBIN 12.6 g/dl (14.0-17.9); LYMPHOCYTES # (AUTO) 0.6 X10'3 (1.1-4.8); MONOCYTES # (AUTO) 0.8 X10'3 (0-0.9); MONOCYTES % (AUTO) 6.1 % (2-12)
[2024-12-26 16:25] LABS: HEMATOCRIT 37.8 % (42.0-52.0); LYMPHOCYTES % (AUTO) 4.4 % (21-51); MEAN CORPUSCULAR HEMOGLOBIN 32.1 PG (27.0-31.0); MEAN CORPUSCULAR HGB CONC 33.4 g/dL (33.0-36.5); MEAN CORPUSCULAR VOLUME 96.2 FL (78-98); MEAN PLATELET VOLUME 10.4 FL (7.4-10.4); NEUTROPHILS # (AUTO) 11.4 X10'3 (1.8-7.7); NEUTROPHILS % (AUTO) 89.2 % (42-75); PLATELET COUNT 70 X10'3 (140-440); RED BLOOD COUNT 3.93 X10'6 (4.70-6.10); RED CELL DISTRIBUTION WIDTH 14.2 % (11.5-14.5); WHITE BLOOD COUNT 12.8 X10'3 (4.5-11.0)
[2024-12-26 16:42] LABS: ALBUMIN 1.9 G/DL (3.4-5.0); ANION GAP 7 (8-16); BLOOD UREA NITROGEN 22 MG/DL (7-18); BUN/CREATININE RATIO 8.1 (10.0-20.0); CHLORIDE 110 MMOL/L (99-107); CREATININE 2.71 MG/DL (0.60-1.10); GLUCOSE 252 MG/DL (70-104); SODIUM 143 MMOL/L (135-145); TOTAL CARBON DIOXIDE 25.7 MMOL/L (24-32); eGFR 25 ML/MIN
[2024-12-26 16:50] LABS: PHOSPHORUS 3.6 MG/DL (2.3-4.5); POTASSIUM 4.5 MMOL/L (3.5-5.1)
[2024-12-26 16:51] LABS: CALCIUM CVVH 5.5 MG/DL (8.5-10.1)
[2024-12-26] MEDS: acetaminophen 325mg/10.15ml oral unit dose solution OGT PRN (18:30)
[2024-12-26] MEDS ORDERED: VANCOMYCIN LEVEL IV ONE (19:30)
[2024-12-26 20:00] LABS: ALBUMIN 1.8 G/DL (3.4-5.0); ANION GAP 9 (8-16); BLOOD UREA NITROGEN 22 MG/DL (7-18); BUN/CREATININE RATIO 7.8 (10.0-20.0); CHLORIDE 108 MMOL/L (99-107); CREATININE 2.82 MG/DL (0.60-1.10); GLUCOSE 282 MG/DL (70-104); MAGNESIUM 1.9 MG/DL (1.5-2.4); SODIUM 140 MMOL/L (135-145); TOTAL CARBON DIOXIDE 22.8 MMOL/L (24-32); eGFR 24 ML/MIN
[2024-12-26 20:06] LABS: PLATELET COUNT 78 X10'3 (140-440); RED CELL DISTRIBUTION WIDTH 14.1 % (11.5-14.5)
[2024-12-26 20:08] LABS: BASOPHILS % (AUTO) 0.2 % (0-1); EOSINOPHILS % (AUTO) 0.3 % (0-6); HEMATOCRIT 36.9 % (42.0-52.0); HEMOGLOBIN 12.6 g/dl (14.0-17.9); LYMPHOCYTES # (AUTO) 0.7 X10'3 (1.1-4.8); LYMPHOCYTES % (AUTO) 5.6 % (21-51); MEAN CORPUSCULAR HEMOGLOBIN 32.9 PG (27.0-31.0); MEAN CORPUSCULAR HGB CONC 34.2 g/dL (33.0-36.5); MEAN CORPUSCULAR VOLUME 96.2 FL (78-98); MEAN PLATELET VOLUME 11.8 FL (7.4-10.4); MONOCYTES % (AUTO) 7.7 % (2-12); NEUTROPHILS # (AUTO) 10.9 X10'3 (1.8-7.7); NEUTROPHILS % (AUTO) 86.2 % (42-75); RED BLOOD COUNT 3.83 X10'6 (4.70-6.10); WHITE BLOOD COUNT 12.6 X10'3 (4.5-11.0)
[2024-12-26 20:18] LABS: PHOSPHORUS 3.5 MG/DL (2.3-4.5); POTASSIUM 4.3 MMOL/L (3.5-5.1)
[2024-12-26 20:24] LABS: CALCIUM CVVH 5.9 MG/DL (8.5-10.1)
[2024-12-27] VITALS (35 sets, daily range): BP systolic 102–136; BP diastolic 56–72; PULSE 100–127; RESP 21–38; O2SAT 93–99
[2024-12-27 00:14] LABS: BASOPHILS % (AUTO) 0.1 % (0-1); EOSINOPHILS % (AUTO) 0.3 % (0-6); HEMATOCRIT 37.1 % (42.0-52.0); HEMOGLOBIN 12.6 g/dl (14.0-17.9); LYMPHOCYTES # (AUTO) 0.8 X10'3 (1.1-4.8); LYMPHOCYTES % (AUTO) 6.1 % (21-51); MEAN CORPUSCULAR HEMOGLOBIN 32.6 PG (27.0-31.0); MEAN CORPUSCULAR VOLUME 95.9 FL (78-98); MEAN PLATELET VOLUME 10.7 FL (7.4-10.4); MONOCYTES # (AUTO) 0.5 X10'3 (0-0.9); MONOCYTES % (AUTO) 3.9 % (2-12); NEUTROPHILS # (AUTO) 11.8 X10'3 (1.8-7.7); NEUTROPHILS % (AUTO) 89.6 % (42-75); PLATELET COUNT 70 X10'3 (140-440); RED BLOOD COUNT 3.87 X10'6 (4.70-6.10); WHITE BLOOD COUNT 13.2 X10'3 (4.5-11.0)
[2024-12-27 00:29] LABS: NUCLEATED RED BLOOD CELLS 1 /100WBC (0-0); TOTAL CELLS COUNTED 100
[2024-12-27 00:34] LABS: ALANINE AMINOTRANSFERASE 585 U/L (12-78); ALBUMIN 1.8 G/DL (3.4-5.0); ALBUMIN/GLOBULIN RATIO 0.5 (1.1-1.5); ALKALINE PHOSPHATASE 108 IU/L (46-116); ANION GAP 9 (8-16); BLOOD UREA NITROGEN 22 MG/DL (7-18); BUN/CREATININE RATIO 7.9 (10.0-20.0); CHLORIDE 107 MMOL/L (99-107); CREATININE 2.78 MG/DL (0.60-1.10); GLUCOSE 275 MG/DL (70-104); MAGNESIUM 1.9 MG/DL (1.5-2.4); SODIUM 140 MMOL/L (135-145); TOTAL CARBON DIOXIDE 23.9 MMOL/L (24-32); TOTAL PROTEIN 5.5 G/DL (6.4-8.2); eCRCL 34 ML/MIN; eGFR 25 ML/MIN
[2024-12-27 00:38] LABS: ASPARTATE AMINO TRANSFERASE 307 U/L (10-37); PHOSPHORUS 2.8 MG/DL (2.3-4.5); POTASSIUM 4.1 MMOL/L (3.5-5.1)
[2024-12-27 00:39] LABS: CALCIUM 5.6 MG/DL (8.5-10.1); CALCIUM CVVH 5.6 MG/DL (8.5-10.1)
[2024-12-27 03:39] LABS: ABG BASE EXCESS -5.1 mmol/L (-2.0-3.0); ABG HCO3 20.8 mmol/L (21.0-28.0); ABG OXYGEN SATURATION 96.5 % (94.0-98.0); ABG PCO2 (T) 40.6 mmHg (35.0-48.0); ABG PH (T) 7.325 (7.350-7.450); ABG PO2 (T) 79.7 mmHg (83.0-108.0); FCOHb 0.9 % (0.5-1.5); FHHb 3.5 % (0.0-5.0); FMetHb 0.3 % (0.0-1.5); FO2Hb 95.3 % (94.0-98.0); MODE ac/prvc; PATIENT TEMPERATURE 36.6; PEEP 10 cm H2O; RESPIRATORY RATE 24 b/min; TIDAL VOLUME 350 mL; TOTAL HEMOGLOBIN 12.8 G/dl (13.5-17.5)
[2024-12-27 04:02] LABS: BASOPHILS % (AUTO) 0.1 % (0-1); EOSINOPHILS # (AUTO) 0.1 X10'3 (0-0.9); EOSINOPHILS % (AUTO) 0.4 % (0-6); HEMOGLOBIN 12.4 g/dl (14.0-17.9); PLATELET COUNT 70 X10'3 (140-440)
[2024-12-27 04:04] LABS: HEMATOCRIT 36.7 % (42.0-52.0); LYMPHOCYTES # (AUTO) 0.7 X10'3 (1.1-4.8); LYMPHOCYTES % (AUTO) 4.9 % (21-51); MEAN CORPUSCULAR HEMOGLOBIN 32.6 PG (27.0-31.0); MEAN CORPUSCULAR HGB CONC 33.8 g/dL (33.0-36.5); MEAN CORPUSCULAR VOLUME 96.3 FL (78-98); MONOCYTES % (AUTO) 7.1 % (2-12); NEUTROPHILS # (AUTO) 11.8 X10'3 (1.8-7.7); NEUTROPHILS % (AUTO) 87.5 % (42-75); RED BLOOD COUNT 3.81 X10'6 (4.70-6.10); RED CELL DISTRIBUTION WIDTH 14.3 % (11.5-14.5); WHITE BLOOD COUNT 13.5 X10'3 (4.5-11.0)
[2024-12-27 04:14] LABS: ALBUMIN 1.8 G/DL (3.4-5.0); ANION GAP 10 (8-16); BLOOD UREA NITROGEN 23 MG/DL (7-18); BUN/CREATININE RATIO 8.4 (10.0-20.0); CHLORIDE 109 MMOL/L (99-107); CREATININE 2.74 MG/DL (0.60-1.10); GLUCOSE 275 MG/DL (70-104); MAGNESIUM 2.4 MG/DL (1.5-2.4); PHOSPHORUS 2.6 MG/DL (2.3-4.5); POTASSIUM 4.1 MMOL/L (3.5-5.1); PREALBUMIN 7.3 MG/DL (19-36); SODIUM 141 MMOL/L (135-145); TOTAL CARBON DIOXIDE 22.4 MMOL/L (24-32); eGFR 25 ML/MIN
[2024-12-27 04:27] LABS: CALCIUM CVVH 5.6 MG/DL (8.5-10.1); TOTAL CELLS COUNTED 100
[2024-12-27] MEDS: insulin glargine (Lantus) pen - multi-dose SQ SCH ×2 (07:28→19:28)
[2024-12-27] MEDS: insulin glargine (Lantus) VIAL- multi-dose SQ SCH (08:00)
[2024-12-27 08:31] LABS: BASOPHILS % (AUTO) 0.1 % (0-1); EOSINOPHILS # (AUTO) 0.1 X10'3 (0-0.9); LYMPHOCYTES # (AUTO) 0.7 X10'3 (1.1-4.8); PLATELET COUNT 60 X10'3 (140-440)
[2024-12-27 08:34] LABS: EOSINOPHILS % (AUTO) 0.4 % (0-6); LYMPHOCYTES % (AUTO) 5.4 % (21-51); MEAN CORPUSCULAR HEMOGLOBIN 32.3 PG (27.0-31.0); MEAN CORPUSCULAR HGB CONC 33.2 g/dL (33.0-36.5); MEAN CORPUSCULAR VOLUME 97.3 FL (78-98); MONOCYTES % (AUTO) 7.9 % (2-12); NEUTROPHILS # (AUTO) 11.2 X10'3 (1.8-7.7); NEUTROPHILS % (AUTO) 86.2 % (42-75); RED CELL DISTRIBUTION WIDTH 14.3 % (11.5-14.5)
[2024-12-27 09:20] LABS: ALBUMIN 1.8 G/DL (3.4-5.0); ANION GAP 9 (8-16); BLOOD UREA NITROGEN 25 MG/DL (7-18); BUN/CREATININE RATIO 9.5 (10.0-20.0); CHLORIDE 109 MMOL/L (99-107); CREATININE 2.63 MG/DL (0.60-1.10); GLUCOSE 276 MG/DL (70-104); MAGNESIUM 1.9 MG/DL (1.5-2.4); SODIUM 141 MMOL/L (135-145); TOTAL CARBON DIOXIDE 22.7 MMOL/L (24-32); eGFR 26 ML/MIN
[2024-12-27 09:21] LABS: CALCIUM CVVH 5.9 MG/DL (8.5-10.1)
[2024-12-27 09:22] LABS: PHOSPHORUS 2.5 MG/DL (2.3-4.5)
[2024-12-27 10:06] LABS: TOTAL CELLS COUNTED 100
[2024-12-27 10:07] LABS: LARGE PLATELETS FEW; PLATELET ESTIMATE DECREASED
[2024-12-27] MEDS: COMMUNICATION ORDER 1 EA MISC MC ONE (11:10)
[2024-12-27] MEDS: Levetiracetam-NACL 500mg/100ml 100 ML IV SCH (11:40)
[2024-12-27 12:13] LABS: BASOPHILS % (AUTO) 0.1 % (0-1); EOSINOPHILS # (AUTO) 0.1 X10'3 (0-0.9); EOSINOPHILS % (AUTO) 0.4 % (0-6); LYMPHOCYTES # (AUTO) 0.6 X10'3 (1.1-4.8)
[2024-12-27 12:15] LABS: HEMATOCRIT 35.3 % (42.0-52.0); LYMPHOCYTES % (AUTO) 4.4 % (21-51); MEAN CORPUSCULAR HEMOGLOBIN 32.9 PG (27.0-31.0); MEAN CORPUSCULAR HGB CONC 33.9 g/dL (33.0-36.5); MEAN CORPUSCULAR VOLUME 96.8 FL (78-98); MEAN PLATELET VOLUME 9.7 FL (7.4-10.4); MONOCYTES # (AUTO) 0.8 X10'3 (0-0.9); MONOCYTES % (AUTO) 5.8 % (2-12); NEUTROPHILS % (AUTO) 89.3 % (42-75); PLATELET COUNT 57 X10'3 (140-440); RED BLOOD COUNT 3.64 X10'6 (4.70-6.10); RED CELL DISTRIBUTION WIDTH 14.1 % (11.5-14.5); WHITE BLOOD COUNT 13.4 X10'3 (4.5-11.0)
[2024-12-27 12:28] LABS: ALBUMIN 1.8 G/DL (3.4-5.0); ANION GAP 8 (8-16); BLOOD UREA NITROGEN 26 MG/DL (7-18); BUN/CREATININE RATIO 10.7 (10.0-20.0); CHLORIDE 112 MMOL/L (99-107); CREATININE 2.44 MG/DL (0.60-1.10); GLUCOSE 263 MG/DL (70-104); MAGNESIUM 1.8 MG/DL (1.5-2.4); SODIUM 145 MMOL/L (135-145); TOTAL CARBON DIOXIDE 25.5 MMOL/L (24-32); eGFR 29 ML/MIN
[2024-12-27 12:29] LABS: CALCIUM CVVH 5.9 MG/DL (8.5-10.1)
[2024-12-27 12:30] LABS: PHOSPHORUS 2.5 MG/DL (2.3-4.5)
[2024-12-27] MEDS: mineral oil/petrolatum ophthal oint EACHEYE PRN (14:48)
[2024-12-27 16:35] LABS: BASOPHILS % (AUTO) 0.1 % (0-1); EOSINOPHILS % (AUTO) 0.3 % (0-6); HEMATOCRIT 36.6 % (42.0-52.0); HEMOGLOBIN 12.3 g/dl (14.0-17.9); LYMPHOCYTES # (AUTO) 0.6 X10'3 (1.1-4.8); MEAN CORPUSCULAR HEMOGLOBIN 32.7 PG (27.0-31.0); MEAN CORPUSCULAR HGB CONC 33.5 g/dL (33.0-36.5); MEAN CORPUSCULAR VOLUME 97.4 FL (78-98); MEAN PLATELET VOLUME 10.7 FL (7.4-10.4); MONOCYTES % (AUTO) 7.1 % (2-12); NEUTROPHILS # (AUTO) 12.6 X10'3 (1.8-7.7); NEUTROPHILS % (AUTO) 88.5 % (42-75); PLATELET COUNT 62 X10'3 (140-440); RED BLOOD COUNT 3.75 X10'6 (4.70-6.10); RED CELL DISTRIBUTION WIDTH 14.3 % (11.5-14.5); WHITE BLOOD COUNT 14.3 X10'3 (4.5-11.0)
[2024-12-27 16:41] LABS: ALBUMIN 1.9 G/DL (3.4-5.0); ANION GAP 10 (8-16); BLOOD UREA NITROGEN 26 MG/DL (7-18); BUN/CREATININE RATIO 10.8 (10.0-20.0); CALCIUM CVVH 6.2 MG/DL (8.5-10.1); CHLORIDE 112 MMOL/L (99-107); CREATININE 2.41 MG/DL (0.60-1.10); GLUCOSE 256 MG/DL (70-104); MAGNESIUM 1.9 MG/DL (1.5-2.4); SODIUM 145 MMOL/L (135-145); TOTAL CARBON DIOXIDE 23.5 MMOL/L (24-32); eGFR 29 ML/MIN
[2024-12-27 16:47] LABS: POTASSIUM 4.1 MMOL/L (3.5-5.1)
[2024-12-27 16:48] LABS: PHOSPHORUS 2.5 MG/DL (2.3-4.5)
[2024-12-27 20:07] LABS: BASOPHILS % (AUTO) 0.1 % (0-1); EOSINOPHILS % (AUTO) 0.3 % (0-6); HEMATOCRIT 36.2 % (42.0-52.0); HEMOGLOBIN 12.2 g/dl (14.0-17.9); LYMPHOCYTES # (AUTO) 0.6 X10'3 (1.1-4.8); LYMPHOCYTES % (AUTO) 4.1 % (21-51); MEAN CORPUSCULAR HEMOGLOBIN 32.6 PG (27.0-31.0); MEAN CORPUSCULAR HGB CONC 33.7 g/dL (33.0-36.5); MEAN CORPUSCULAR VOLUME 96.7 FL (78-98); MONOCYTES # (AUTO) 1.2 X10'3 (0-0.9); MONOCYTES % (AUTO) 7.9 % (2-12); NEUTROPHILS # (AUTO) 13.5 X10'3 (1.8-7.7); NEUTROPHILS % (AUTO) 87.6 % (42-75); PLATELET COUNT 58 X10'3 (140-440); RED BLOOD COUNT 3.74 X10'6 (4.70-6.10); RED CELL DISTRIBUTION WIDTH 14.3 % (11.5-14.5); WHITE BLOOD COUNT 15.4 X10'3 (4.5-11.0)
[2024-12-27 20:22] LABS: ALBUMIN 1.9 G/DL (3.4-5.0); ANION GAP 8 (8-16); BLOOD UREA NITROGEN 26 MG/DL (7-18); BUN/CREATININE RATIO 10.2 (10.0-20.0); CALCIUM CVVH 6.4 MG/DL (8.5-10.1); CHLORIDE 113 MMOL/L (99-107); CREATININE 2.54 MG/DL (0.60-1.10); GLUCOSE 200 MG/DL (70-104); MAGNESIUM 1.9 MG/DL (1.5-2.4); SODIUM 146 MMOL/L (135-145); TOTAL CARBON DIOXIDE 25.1 MMOL/L (24-32); eGFR 27 ML/MIN
[2024-12-27 20:24] LABS: PHOSPHORUS 2.4 MG/DL (2.3-4.5); POTASSIUM 3.8 MMOL/L (3.5-5.1)
[2024-12-28] VITALS (41 sets, daily range): BP systolic 94–140; BP diastolic 51–72; PULSE 112–128; RESP 18–35; O2SAT 91–99
[2024-12-28 00:33] LABS: BASOPHILS % (AUTO) 0 % (0-1); LYMPHOCYTES # (AUTO) 0.6 X10'3 (1.1-4.8); MEAN CORPUSCULAR HGB CONC 33.6 g/dL (33.0-36.5); MONOCYTES # (AUTO) 0.8 X10'3 (0-0.9); RED BLOOD COUNT 3.69 X10'6 (4.70-6.10); RED CELL DISTRIBUTION WIDTH 14.1 % (11.5-14.5)
[2024-12-28 00:35] LABS: EOSINOPHILS % (AUTO) 0.2 % (0-6); HEMATOCRIT 35.6 % (42.0-52.0); LYMPHOCYTES % (AUTO) 4.1 % (21-51); MEAN CORPUSCULAR HEMOGLOBIN 32.5 PG (27.0-31.0); MEAN CORPUSCULAR VOLUME 96.5 FL (78-98); MEAN PLATELET VOLUME 10.4 FL (7.4-10.4); MONOCYTES % (AUTO) 5.4 % (2-12); NEUTROPHILS % (AUTO) 90.3 % (42-75); PLATELET COUNT 55 X10'3 (140-440); WHITE BLOOD COUNT 14.4 X10'3 (4.5-11.0)
[2024-12-28 00:50] LABS: ALANINE AMINOTRANSFERASE 375 U/L (12-78); ALBUMIN 1.8 G/DL (3.4-5.0); ALBUMIN/GLOBULIN RATIO 0.5 (1.1-1.5); ALKALINE PHOSPHATASE 112 IU/L (46-116); ANION GAP 9 (8-16); BILIRUBIN,TOTAL 1.7 MG/DL (0.1-1.0); BLOOD UREA NITROGEN 28 MG/DL (7-18); BUN/CREATININE RATIO 11.8 (10.0-20.0); CALCIUM 6.2 MG/DL (8.5-10.1); CALCIUM CVVH 6.2 MG/DL (8.5-10.1); CHLORIDE 113 MMOL/L (99-107); CREATININE 2.37 MG/DL (0.60-1.10); GLUCOSE 227 MG/DL (70-104); MAGNESIUM 1.9 MG/DL (1.5-2.4); SODIUM 146 MMOL/L (135-145); TOTAL CARBON DIOXIDE 23.9 MMOL/L (24-32); TOTAL PROTEIN 5.8 G/DL (6.4-8.2); eCRCL 40 ML/MIN; eGFR 30 ML/MIN
[2024-12-28 00:54] LABS: NUCLEATED RED BLOOD CELLS 1 /100WBC (0-0); TOTAL CELLS COUNTED 100
[2024-12-28 00:55] LABS: ASPARTATE AMINO TRANSFERASE 147 U/L (10-37); PHOSPHORUS 1.9 MG/DL (2.3-4.5)
[2024-12-28] MEDS: sodium phosphate inj. 30 MMOL in dextrose 5%-water 250 ML IV PRN (02:21)
[2024-12-28] MEDS ORDERED: calcium gluconate inj. 1 GM in normal saline 100ml IV soln 100 ML IV ONE (03:05)
[2024-12-28] MEDS: LORazepam 2 mg/ml vial IV PRN (03:26)
[2024-12-28 03:57] LABS: ABG BASE EXCESS -11.7 mmol/L (-2.0-3.0); ABG HCO3 13.6 mmol/L (21.0-28.0); ABG OXYGEN SATURATION 91.4 % (94.0-98.0); ABG PH (T) 7.289 (7.350-7.450); ABG PO2 (T) 62.1 mmHg (83.0-108.0); FCOHb 0.7 % (0.5-1.5); FHHb 8.5 % (0.0-5.0); FMetHb 0.3 % (0.0-1.5); FO2Hb 90.5 % (94.0-98.0); MODE vent- ac prvc; PEEP 10 cm H2O; RESPIRATORY RATE 24 b/min; TIDAL VOLUME 350 mL; TOTAL HEMOGLOBIN 9.7 G/dl (13.5-17.5)
[2024-12-28 04:07] LABS: BASOPHILS % (AUTO) 0.1 % (0-1); EOSINOPHILS % (AUTO) 0.3 % (0-6); MEAN CORPUSCULAR HGB CONC 33.6 g/dL (33.0-36.5)
[2024-12-28 04:09] LABS: EOSINOPHILS # (AUTO) 0.1 X10'3 (0-0.9); HEMATOCRIT 35.3 % (42.0-52.0); HEMOGLOBIN 11.9 g/dl (14.0-17.9); LYMPHOCYTES # (AUTO) 0.8 X10'3 (1.1-4.8); LYMPHOCYTES % (AUTO) 5.3 % (21-51); MEAN CORPUSCULAR HEMOGLOBIN 32.5 PG (27.0-31.0); MEAN CORPUSCULAR VOLUME 96.8 FL (78-98); MEAN PLATELET VOLUME 10.8 FL (7.4-10.4); MONOCYTES # (AUTO) 1.1 X10'3 (0-0.9); MONOCYTES % (AUTO) 7.4 % (2-12); NEUTROPHILS % (AUTO) 86.9 % (42-75); PLATELET COUNT 54 X10'3 (140-440); RED BLOOD COUNT 3.65 X10'6 (4.70-6.10); RED CELL DISTRIBUTION WIDTH 13.8 % (11.5-14.5)
[2024-12-28 04:19] LABS: ALBUMIN 1.8 G/DL (3.4-5.0); ANION GAP 12 (8-16); BLOOD UREA NITROGEN 28 MG/DL (7-18); BUN/CREATININE RATIO 11.1 (10.0-20.0); CALCIUM CVVH 6.1 MG/DL (8.5-10.1); CHLORIDE 110 MMOL/L (99-107); CREATININE 2.52 MG/DL (0.60-1.10); GLUCOSE 228 MG/DL (70-104); MAGNESIUM 1.8 MG/DL (1.5-2.4); SODIUM 145 MMOL/L (135-145); TOTAL CARBON DIOXIDE 23.5 MMOL/L (24-32); eGFR 28 ML/MIN
[2024-12-28 04:32] LABS: POTASSIUM 3.9 MMOL/L (3.5-5.1)
[2024-12-28] MEDS: calcium gluconate inj. 1 GM in normal saline 100ml IV soln 100 ML IV SCH (04:38)
[2024-12-28 05:17] LABS: ABG BASE EXCESS -8.9 mmol/L (-2.0-3.0); ABG HCO3 15.9 mmol/L (21.0-28.0); ABG PCO2 (T) 30.5 mmHg (35.0-48.0); ABG PH (T) 7.333 (7.350-7.450); ABG PO2 (T) 70.4 mmHg (83.0-108.0); FCOHb 0.8 % (0.5-1.5); FHHb 5.9 % (0.0-5.0); FMetHb 0.3 % (0.0-1.5); MODE ac/prvc; PATIENT TEMPERATURE 36.8; PEEP 10 cm H2O; RESPIRATORY RATE 24 b/min; TIDAL VOLUME 350 mL; TOTAL HEMOGLOBIN 11.6 G/dl (13.5-17.5)
[2024-12-28 08:13] LABS: BASOPHILS % (AUTO) 0.2 % (0-1); EOSINOPHILS # (AUTO) 0.1 X10'3 (0-0.9); LYMPHOCYTES # (AUTO) 0.6 X10'3 (1.1-4.8)
[2024-12-28 08:14] LABS: EOSINOPHILS % (AUTO) 0.5 % (0-6); HEMOGLOBIN 11.8 g/dl (14.0-17.9); LYMPHOCYTES % (AUTO) 4.4 % (21-51); MEAN CORPUSCULAR HEMOGLOBIN 32.3 PG (27.0-31.0); MEAN CORPUSCULAR HGB CONC 33.7 g/dL (33.0-36.5); MEAN CORPUSCULAR VOLUME 96.1 FL (78-98); MONOCYTES # (AUTO) 0.4 X10'3 (0-0.9); MONOCYTES % (AUTO) 2.6 % (2-12); NEUTROPHILS # (AUTO) 12.9 X10'3 (1.8-7.7); NEUTROPHILS % (AUTO) 92.3 % (42-75); RED BLOOD COUNT 3.64 X10'6 (4.70-6.10); RED CELL DISTRIBUTION WIDTH 14.1 % (11.5-14.5)
[2024-12-28 08:19] LABS: PLATELET COUNT 47 X10'3 (140-440)
[2024-12-28 08:31] LABS: ALBUMIN 1.7 G/DL (3.4-5.0); ANION GAP 11 (8-16); BLOOD UREA NITROGEN 28 MG/DL (7-18); BUN/CREATININE RATIO 11.5 (10.0-20.0); CHLORIDE 110 MMOL/L (99-107); CREATININE 2.43 MG/DL (0.60-1.10); GLUCOSE 218 MG/DL (70-104); MAGNESIUM 1.8 MG/DL (1.5-2.4); PHOSPHORUS 2.9 MG/DL (2.3-4.5); SODIUM 143 MMOL/L (135-145); TOTAL CARBON DIOXIDE 22.5 MMOL/L (24-32); eGFR 29 ML/MIN
[2024-12-28 08:32] LABS: POTASSIUM 3.8 MMOL/L (3.5-5.1)
[2024-12-28] MEDS: ipratropium/albuterol 3ml nebule NEB PRN (09:41)
[2024-12-28 11:05] LABS: ABG OXYGEN SATURATION 96.1 % (94.0-98.0); ABG PCO2 (T) 40.4 mmHg (35.0-48.0); ABG PH (T) 7.373 (7.350-7.450); ABG PO2 (T) 77.8 mmHg (83.0-108.0); FCOHb 0.9 % (0.5-1.5); FHHb 3.9 % (0.0-5.0); FMetHb 0.3 % (0.0-1.5); FO2Hb 94.9 % (94.0-98.0); MODE VENT - APRV; PATIENT TEMPERATURE 36.9; TOTAL HEMOGLOBIN 12.3 G/dl (13.5-17.5)
[2024-12-28] MEDS: rocuronium bromide 100mg/10ml (10mg/ml) injection IV ONE (11:35)
[2024-12-28 12:26] LABS: BASOPHILS % (AUTO) 0.1 % (0-1); EOSINOPHILS # (AUTO) 0.1 X10'3 (0-0.9); EOSINOPHILS % (AUTO) 0.4 % (0-6); HEMATOCRIT 35.8 % (42.0-52.0); HEMOGLOBIN 12.1 g/dl (14.0-17.9); LYMPHOCYTES # (AUTO) 0.7 X10'3 (1.1-4.8); MEAN CORPUSCULAR HEMOGLOBIN 32.7 PG (27.0-31.0); MEAN CORPUSCULAR HGB CONC 33.7 g/dL (33.0-36.5); MEAN CORPUSCULAR VOLUME 97.1 FL (78-98); MEAN PLATELET VOLUME 9.7 FL (7.4-10.4); MONOCYTES # (AUTO) 0.8 X10'3 (0-0.9); MONOCYTES % (AUTO) 5.1 % (2-12); NEUTROPHILS # (AUTO) 14.8 X10'3 (1.8-7.7); NEUTROPHILS % (AUTO) 90.4 % (42-75); PLATELET COUNT 54 X10'3 (140-440); RED BLOOD COUNT 3.69 X10'6 (4.70-6.10); WHITE BLOOD COUNT 16.4 X10'3 (4.5-11.0)
[2024-12-28 12:39] LABS: ALBUMIN 1.9 G/DL (3.4-5.0); ANION GAP 9 (8-16); BLOOD UREA NITROGEN 30 MG/DL (7-18); BUN/CREATININE RATIO 13.2 (10.0-20.0); CALCIUM CVVH 6.4 MG/DL (8.5-10.1); CHLORIDE 112 MMOL/L (99-107); CREATININE 2.28 MG/DL (0.60-1.10); GLUCOSE 230 MG/DL (70-104); MAGNESIUM 1.8 MG/DL (1.5-2.4); PHOSPHORUS 2.7 MG/DL (2.3-4.5); SODIUM 146 MMOL/L (135-145); TOTAL CARBON DIOXIDE 25.1 MMOL/L (24-32); eGFR 31 ML/MIN
[2024-12-28 12:53] LABS: POTASSIUM 4.2 MMOL/L (3.5-5.1)
[2024-12-28] MEDS ORDERED: fentaNYL 2,500 MCG in Normal Saline 250ml IV soln bag IV SCH (13:10)
[2024-12-28 14:48] LABS: ABG BASE EXCESS -5.5 mmol/L (-2.0-3.0); ABG HCO3 23.6 mmol/L (21.0-28.0); ABG OXYGEN SATURATION 90.5 % (94.0-98.0); ABG PCO2 (T) 64.3 mmHg (35.0-48.0); ABG PH (T) 7.183 (7.350-7.450); ABG PO2 (T) 68.4 mmHg (83.0-108.0); FHHb 9.4 % (0.0-5.0); FMetHb 0.3 % (0.0-1.5); FO2Hb 89.3 % (94.0-98.0); MODE VENT - APRV; TOTAL HEMOGLOBIN 12.3 G/dl (13.5-17.5)
[2024-12-28] MEDS: sodium bicarbonate 1meq/ml inj 150 ML in dextrose 5%-water 1,000 ML IV SCH (14:53)
[2024-12-28] MEDS: fentaNYL 2,500 MCG in Normal Saline 250ml IV soln bag IV SCH (15:39)
[2024-12-28] MEDS: MEROPENEM 500MG/50ML-NS IVPB 50 ML IV SCH (16:15)
[2024-12-28] MEDS: NORepinephrine 8mg/ 250ml NS 250 ML IV SCH (16:16)
[2024-12-28 16:21] LABS: BASOPHILS % (AUTO) 0.3 % (0-1); EOSINOPHILS # (AUTO) 0.1 X10'3 (0-0.9); EOSINOPHILS % (AUTO) 0.3 % (0-6); HEMATOCRIT 35.9 % (42.0-52.0); HEMOGLOBIN 11.9 g/dl (14.0-17.9); LYMPHOCYTES # (AUTO) 0.6 X10'3 (1.1-4.8); LYMPHOCYTES % (AUTO) 3.5 % (21-51); MEAN CORPUSCULAR HEMOGLOBIN 32.4 PG (27.0-31.0); MEAN CORPUSCULAR HGB CONC 33.1 g/dL (33.0-36.5); MEAN CORPUSCULAR VOLUME 97.7 FL (78-98); MONOCYTES # (AUTO) 0.9 X10'3 (0-0.9); MONOCYTES % (AUTO) 4.7 % (2-12); NEUTROPHILS # (AUTO) 16.5 X10'3 (1.8-7.7); NEUTROPHILS % (AUTO) 91.2 % (42-75); PLATELET COUNT 55 X10'3 (140-440); RED BLOOD COUNT 3.67 X10'6 (4.70-6.10); RED CELL DISTRIBUTION WIDTH 14.2 % (11.5-14.5); WHITE BLOOD COUNT 18.1 X10'3 (4.5-11.0)
[2024-12-28 16:50] LABS: ALBUMIN 1.8 G/DL (3.4-5.0); ANION GAP 9 (8-16); BLOOD UREA NITROGEN 31 MG/DL (7-18); BUN/CREATININE RATIO 13.1 (10.0-20.0); CHLORIDE 109 MMOL/L (99-107); CREATININE 2.37 MG/DL (0.60-1.10); GLUCOSE 263 MG/DL (70-104); MAGNESIUM 2.2 MG/DL (1.5-2.4); SODIUM 143 MMOL/L (135-145); TOTAL CARBON DIOXIDE 24.8 MMOL/L (24-32); eGFR 30 ML/MIN
[2024-12-28 16:56] LABS: PHOSPHORUS 3.7 MG/DL (2.3-4.5); POTASSIUM 4.4 MMOL/L (3.5-5.1)
[2024-12-28 17:58] LABS: ABG BASE EXCESS -2.2 mmol/L (-2.0-3.0); ABG HCO3 22.8 mmol/L (21.0-28.0); ABG OXYGEN SATURATION 95.5 % (94.0-98.0); ABG PCO2 (T) 39.6 mmHg (35.0-48.0); ABG PH (T) 7.377 (7.350-7.450); ABG PO2 (T) 74.3 mmHg (83.0-108.0); FCOHb 0.7 % (0.5-1.5); FHHb 4.5 % (0.0-5.0); FMetHb 0.3 % (0.0-1.5); FO2Hb 94.5 % (94.0-98.0); MODE VENT - APRV; PATIENT TEMPERATURE 36.9; TOTAL HEMOGLOBIN 12.2 G/dl (13.5-17.5)
[2024-12-28 20:12] LABS: BASOPHILS % (AUTO) 0.1 % (0-1); EOSINOPHILS % (AUTO) 0.1 % (0-6); HEMATOCRIT 33.5 % (42.0-52.0); HEMOGLOBIN 11.2 g/dl (14.0-17.9); LYMPHOCYTES # (AUTO) 0.6 X10'3 (1.1-4.8); LYMPHOCYTES % (AUTO) 3.4 % (21-51); MEAN CORPUSCULAR HEMOGLOBIN 32.6 PG (27.0-31.0); MEAN CORPUSCULAR HGB CONC 33.5 g/dL (33.0-36.5); MEAN CORPUSCULAR VOLUME 97.4 FL (78-98); MEAN PLATELET VOLUME 10.5 FL (7.4-10.4); MONOCYTES # (AUTO) 0.9 X10'3 (0-0.9); MONOCYTES % (AUTO) 5.1 % (2-12); NEUTROPHILS # (AUTO) 16.9 X10'3 (1.8-7.7); NEUTROPHILS % (AUTO) 91.3 % (42-75); PLATELET COUNT 54 X10'3 (140-440); RED BLOOD COUNT 3.44 X10'6 (4.70-6.10); RED CELL DISTRIBUTION WIDTH 14.3 % (11.5-14.5); WHITE BLOOD COUNT 18.5 X10'3 (4.5-11.0)
[2024-12-28 20:27] LABS: ALBUMIN 1.7 G/DL (3.4-5.0); ANION GAP 10 (8-16); BLOOD UREA NITROGEN 36 MG/DL (7-18); BUN/CREATININE RATIO 12.4 (10.0-20.0); CALCIUM CVVH 6.1 MG/DL (8.5-10.1); CHLORIDE 109 MMOL/L (99-107); CREATININE 2.91 MG/DL (0.60-1.10); GLUCOSE 329 MG/DL (70-104); MAGNESIUM 1.8 MG/DL (1.5-2.4); PHOSPHORUS 3.4 MG/DL (2.3-4.5); SODIUM 143 MMOL/L (135-145); eGFR 23 ML/MIN
[2024-12-28 20:32] LABS: POTASSIUM 4.5 MMOL/L (3.5-5.1)
[2024-12-28] MEDS: albumin (human) 25% 100 ML IV solution IV SCH (23:38)
[2024-12-29] VITALS (39 sets, daily range): BP systolic 90–129; BP diastolic 45–70; PULSE 108–129; RESP 19–44; O2SAT 66–99
[2024-12-29] MEDS ORDERED: albumin (Human) 5% 250ml 250 ML IV SCH
[2024-12-29 00:38] LABS: EOSINOPHILS # (AUTO) 0.1 X10'3 (0-0.9); EOSINOPHILS % (AUTO) 0.3 % (0-6); HEMATOCRIT 33.7 % (42.0-52.0); LYMPHOCYTES # (AUTO) 0.8 X10'3 (1.1-4.8); RED BLOOD COUNT 3.48 X10'6 (4.70-6.10)
[2024-12-29 00:51] LABS: ALANINE AMINOTRANSFERASE 234 U/L (12-78); ALBUMIN 2.2 G/DL (3.4-5.0); ALBUMIN/GLOBULIN RATIO 0.6 (1.1-1.5); ALKALINE PHOSPHATASE 105 IU/L (46-116); ANION GAP 10 (8-16); ASPARTATE AMINO TRANSFERASE 98 U/L (10-37); BILIRUBIN,TOTAL 1.6 MG/DL (0.1-1.0); BLOOD UREA NITROGEN 36 MG/DL (7-18); BUN/CREATININE RATIO 14.6 (10.0-20.0); CALCIUM 6.5 MG/DL (8.5-10.1); CALCIUM CVVH 6.5 MG/DL (8.5-10.1); CHLORIDE 110 MMOL/L (99-107); CREATININE 2.47 MG/DL (0.60-1.10); GLUCOSE 325 MG/DL (70-104); MAGNESIUM 1.8 MG/DL (1.5-2.4); PHOSPHORUS 2.5 MG/DL (2.3-4.5); SODIUM 145 MMOL/L (135-145); TOTAL CARBON DIOXIDE 25.1 MMOL/L (24-32); TOTAL PROTEIN 6.2 G/DL (6.4-8.2); eCRCL 39 ML/MIN; eGFR 28 ML/MIN
[2024-12-29 00:52] LABS: POTASSIUM 4.2 MMOL/L (3.5-5.1)
[2024-12-29 01:03] LABS: BASOPHILS % (AUTO) 0 % (0-1); HEMOGLOBIN 11.3 g/dl (14.0-17.9); LYMPHOCYTES % (AUTO) 4.5 % (21-51); MEAN CORPUSCULAR HEMOGLOBIN 32.3 PG (27.0-31.0); MEAN CORPUSCULAR HGB CONC 33.5 g/dL (33.0-36.5); MEAN CORPUSCULAR VOLUME 96.6 FL (78-98); MEAN PLATELET VOLUME 11.2 FL (7.4-10.4); MONOCYTES # (AUTO) 0.9 X10'3 (0-0.9); MONOCYTES % (AUTO) 5.2 % (2-12); NEUTROPHILS # (AUTO) 16.1 X10'3 (1.8-7.7); NUCLEATED RED BLOOD CELLS 1 /100WBC (0-0); PLATELET COUNT 58 X10'3 (140-440); RED CELL DISTRIBUTION WIDTH 14.3 % (11.5-14.5); TOTAL CELLS COUNTED 100; WHITE BLOOD COUNT 17.9 X10'3 (4.5-11.0)
[2024-12-29 03:24] LABS: ABG BASE EXCESS -0.6 mmol/L (-2.0-3.0); ABG HCO3 23.3 mmol/L (21.0-28.0); ABG OXYGEN SATURATION 95.6 % (94.0-98.0); ABG PCO2 (T) 35.5 mmHg (35.0-48.0); ABG PH (T) 7.435 (7.350-7.450); ABG PO2 (T) 70.1 mmHg (83.0-108.0); FCOHb 1.6 % (0.5-1.5); FHHb 4.3 % (0.0-5.0); FMetHb 0.3 % (0.0-1.5); FO2Hb 93.8 % (94.0-98.0); MODE ac/prvc; PATIENT TEMPERATURE 36.8; PEEP 10 cm H2O; RESPIRATORY RATE 18 b/min; TIDAL VOLUME 300 mL; TOTAL HEMOGLOBIN 11.2 G/dl (13.5-17.5)
[2024-12-29] MEDS: sodium bicarbonate 1meq/ml inj 150 ML in dextrose 5%-water 1,000 ML IV SCH (03:52)
[2024-12-29 03:56] LABS: LYMPHOCYTES # (AUTO) 0.8 X10'3 (1.1-4.8); MONOCYTES # (AUTO) 0.6 X10'3 (0-0.9); RED BLOOD COUNT 3.39 X10'6 (4.70-6.10)
[2024-12-29 03:57] LABS: BASOPHILS % (AUTO) 0.2 % (0-1); EOSINOPHILS # (AUTO) 0.1 X10'3 (0-0.9); EOSINOPHILS % (AUTO) 0.4 % (0-6); HEMATOCRIT 32.7 % (42.0-52.0); HEMOGLOBIN 10.9 g/dl (14.0-17.9); LYMPHOCYTES % (AUTO) 4.6 % (21-51); MEAN CORPUSCULAR HEMOGLOBIN 32.1 PG (27.0-31.0); MEAN CORPUSCULAR HGB CONC 33.3 g/dL (33.0-36.5); MEAN CORPUSCULAR VOLUME 96.5 FL (78-98); MEAN PLATELET VOLUME 10.6 FL (7.4-10.4); MONOCYTES % (AUTO) 3.6 % (2-12); NEUTROPHILS # (AUTO) 15.1 X10'3 (1.8-7.7); NEUTROPHILS % (AUTO) 91.2 % (42-75); PLATELET COUNT 56 X10'3 (140-440); RED CELL DISTRIBUTION WIDTH 14.1 % (11.5-14.5); WHITE BLOOD COUNT 16.6 X10'3 (4.5-11.0)
[2024-12-29 04:13] LABS: ALBUMIN 2.8 G/DL (3.4-5.0); ANION GAP 11 (8-16); BLOOD UREA NITROGEN 36 MG/DL (7-18); BUN/CREATININE RATIO 15.4 (10.0-20.0); CALCIUM CVVH 7.2 MG/DL (8.5-10.1); CHLORIDE 110 MMOL/L (99-107); CREATININE 2.34 MG/DL (0.60-1.10); GLUCOSE 249 MG/DL (70-104); MAGNESIUM 1.9 MG/DL (1.5-2.4); PHOSPHORUS 2.2 MG/DL (2.3-4.5); SODIUM 147 MMOL/L (135-145); TOTAL CARBON DIOXIDE 26.5 MMOL/L (24-32); eGFR 30 ML/MIN
[2024-12-29 04:14] LABS: POTASSIUM 3.9 MMOL/L (3.5-5.1)
[2024-12-29 08:12] LABS: BASOPHILS % (AUTO) 0 % (0-1); EOSINOPHILS # (AUTO) 0.1 X10'3 (0-0.9); EOSINOPHILS % (AUTO) 0.4 % (0-6); HEMATOCRIT 33.4 % (42.0-52.0); HEMOGLOBIN 11.3 g/dl (14.0-17.9); LYMPHOCYTES # (AUTO) 0.7 X10'3 (1.1-4.8); LYMPHOCYTES % (AUTO) 4.5 % (21-51); MEAN CORPUSCULAR HEMOGLOBIN 32.6 PG (27.0-31.0); MEAN CORPUSCULAR HGB CONC 33.9 g/dL (33.0-36.5); MEAN CORPUSCULAR VOLUME 96.2 FL (78-98); MEAN PLATELET VOLUME 11.4 FL (7.4-10.4); MONOCYTES # (AUTO) 0.9 X10'3 (0-0.9); MONOCYTES % (AUTO) 5.7 % (2-12); NEUTROPHILS # (AUTO) 13.5 X10'3 (1.8-7.7); NEUTROPHILS % (AUTO) 89.4 % (42-75); PLATELET COUNT 58 X10'3 (140-440); RED BLOOD COUNT 3.47 X10'6 (4.70-6.10); RED CELL DISTRIBUTION WIDTH 14.1 % (11.5-14.5); WHITE BLOOD COUNT 15.2 X10'3 (4.5-11.0)
[2024-12-29 09:16] LABS: ALBUMIN 2.6 G/DL (3.4-5.0); ANION GAP 13 (8-16); BLOOD UREA NITROGEN 37 MG/DL (7-18); BUN/CREATININE RATIO 15.7 (10.0-20.0); CALCIUM CVVH 6.6 MG/DL (8.5-10.1); CHLORIDE 108 MMOL/L (99-107); CREATININE 2.35 MG/DL (0.60-1.10); GLUCOSE 252 MG/DL (70-104); PHOSPHORUS 3.7 MG/DL (2.3-4.5); SODIUM 144 MMOL/L (135-145); eGFR 30 ML/MIN
[2024-12-29 09:17] LABS: POTASSIUM 4.2 MMOL/L (3.5-5.1)
[2024-12-29 12:07] LABS: BASOPHILS % (AUTO) 0.1 % (0-1); EOSINOPHILS # (AUTO) 0.1 X10'3 (0-0.9); EOSINOPHILS % (AUTO) 0.4 % (0-6); HEMATOCRIT 31.7 % (42.0-52.0); HEMOGLOBIN 10.6 g/dl (14.0-17.9); LYMPHOCYTES # (AUTO) 0.7 X10'3 (1.1-4.8); LYMPHOCYTES % (AUTO) 4.5 % (21-51); MEAN CORPUSCULAR HEMOGLOBIN 32.5 PG (27.0-31.0); MEAN CORPUSCULAR HGB CONC 33.5 g/dL (33.0-36.5); MEAN CORPUSCULAR VOLUME 96.9 FL (78-98); MEAN PLATELET VOLUME 11.4 FL (7.4-10.4); MONOCYTES # (AUTO) 0.8 X10'3 (0-0.9); MONOCYTES % (AUTO) 5.8 % (2-12); NEUTROPHILS # (AUTO) 13.1 X10'3 (1.8-7.7); NEUTROPHILS % (AUTO) 89.2 % (42-75); PLATELET COUNT 60 X10'3 (140-440); RED BLOOD COUNT 3.27 X10'6 (4.70-6.10); RED CELL DISTRIBUTION WIDTH 13.9 % (11.5-14.5); WHITE BLOOD COUNT 14.7 X10'3 (4.5-11.0)
[2024-12-29 12:17] LABS: ALBUMIN 3.5 G/DL (3.4-5.0); ANION GAP 12 (8-16); BLOOD UREA NITROGEN 38 MG/DL (7-18); BUN/CREATININE RATIO 16.7 (10.0-20.0); CALCIUM CVVH 6.9 MG/DL (8.5-10.1); CHLORIDE 108 MMOL/L (99-107); CREATININE 2.28 MG/DL (0.60-1.10); GLUCOSE 265 MG/DL (70-104); MAGNESIUM 1.9 MG/DL (1.5-2.4); PHOSPHORUS 3.2 MG/DL (2.3-4.5); SODIUM 146 MMOL/L (135-145); TOTAL CARBON DIOXIDE 26.3 MMOL/L (24-32); eGFR 31 ML/MIN
[2024-12-29 12:23] LABS: POTASSIUM 4.1 MMOL/L (3.5-5.1)
[2024-12-29 17:18] LABS: MEAN CORPUSCULAR VOLUME 96.8 FL (78-98); MONOCYTES # (AUTO) 0.8 X10'3 (0-0.9); MONOCYTES % (AUTO) 5.2 % (2-12); PLATELET COUNT 53 X10'3 (140-440); RED CELL DISTRIBUTION WIDTH 14.1 % (11.5-14.5)
[2024-12-29 17:20] LABS: BASOPHILS % (AUTO) 0.2 % (0-1); EOSINOPHILS # (AUTO) 0.1 X10'3 (0-0.9); EOSINOPHILS % (AUTO) 0.4 % (0-6); LYMPHOCYTES # (AUTO) 0.5 X10'3 (1.1-4.8); LYMPHOCYTES % (AUTO) 3.6 % (21-51); MEAN CORPUSCULAR HEMOGLOBIN 32.4 PG (27.0-31.0); MEAN CORPUSCULAR HGB CONC 33.4 g/dL (33.0-36.5); MEAN PLATELET VOLUME 10.6 FL (7.4-10.4); NEUTROPHILS # (AUTO) 13.5 X10'3 (1.8-7.7); NEUTROPHILS % (AUTO) 90.6 % (42-75); WHITE BLOOD COUNT 14.9 X10'3 (4.5-11.0)
[2024-12-29 18:03] LABS: ANION GAP 15 (8-16); BLOOD UREA NITROGEN 41 MG/DL (7-18); BUN/CREATININE RATIO 17.4 (10.0-20.0); CALCIUM CVVH 6.8 MG/DL (8.5-10.1); CHLORIDE 108 MMOL/L (99-107); CREATININE 2.36 MG/DL (0.60-1.10); GLUCOSE 296 MG/DL (70-104); MAGNESIUM 1.9 MG/DL (1.5-2.4); PHOSPHORUS 3.5 MG/DL (2.3-4.5); SODIUM 148 MMOL/L (135-145); TOTAL CARBON DIOXIDE 24.6 MMOL/L (24-32); eGFR 30 ML/MIN
[2024-12-29 18:04] LABS: POTASSIUM 4.1 MMOL/L (3.5-5.1)
[2024-12-29 20:10] LABS: BASOPHILS % (AUTO) 0.1 % (0-1); EOSINOPHILS # (AUTO) 0.1 X10'3 (0-0.9); EOSINOPHILS % (AUTO) 0.4 % (0-6); HEMATOCRIT 29.8 % (42.0-52.0); HEMOGLOBIN 9.9 g/dl (14.0-17.9); LYMPHOCYTES # (AUTO) 0.6 X10'3 (1.1-4.8); LYMPHOCYTES % (AUTO) 3.9 % (21-51); MEAN CORPUSCULAR HEMOGLOBIN 32.4 PG (27.0-31.0); MEAN CORPUSCULAR HGB CONC 33.3 g/dL (33.0-36.5); MEAN CORPUSCULAR VOLUME 97.1 FL (78-98); MEAN PLATELET VOLUME 11.1 FL (7.4-10.4); MONOCYTES # (AUTO) 0.9 X10'3 (0-0.9); MONOCYTES % (AUTO) 5.7 % (2-12); NEUTROPHILS # (AUTO) 13.5 X10'3 (1.8-7.7); NEUTROPHILS % (AUTO) 89.9 % (42-75); PLATELET COUNT 59 X10'3 (140-440); RED BLOOD COUNT 3.07 X10'6 (4.70-6.10); RED CELL DISTRIBUTION WIDTH 13.9 % (11.5-14.5)
[2024-12-29 20:25] LABS: ALBUMIN 3.8 G/DL (3.4-5.0); ANION GAP 15 (8-16); BLOOD UREA NITROGEN 42 MG/DL (7-18); BUN/CREATININE RATIO 17.5 (10.0-20.0); CHLORIDE 108 MMOL/L (99-107); GLUCOSE 306 MG/DL (70-104); MAGNESIUM 1.9 MG/DL (1.5-2.4); SODIUM 147 MMOL/L (135-145); TOTAL CARBON DIOXIDE 24.4 MMOL/L (24-32); eGFR 29 ML/MIN
[2024-12-29 20:35] LABS: POTASSIUM 4.2 MMOL/L (3.5-5.1)
[2024-12-30] VITALS (35 sets, daily range): BP systolic 91–137; BP diastolic 46–69; PULSE 102–123; RESP 18–39; TEMP 99.3; O2SAT 92–99
[2024-12-30 02:37] LABS: BASOPHILS % (AUTO) 0.2 % (0-1); EOSINOPHILS % (AUTO) 0.3 % (0-6); HEMATOCRIT 29.6 % (42.0-52.0); HEMOGLOBIN 9.9 g/dl (14.0-17.9); LYMPHOCYTES # (AUTO) 0.7 X10'3 (1.1-4.8); LYMPHOCYTES % (AUTO) 5.2 % (21-51); MEAN CORPUSCULAR HEMOGLOBIN 32.4 PG (27.0-31.0); MEAN CORPUSCULAR HGB CONC 33.6 g/dL (33.0-36.5); MEAN CORPUSCULAR VOLUME 96.5 FL (78-98); MEAN PLATELET VOLUME 11.1 FL (7.4-10.4); MONOCYTES # (AUTO) 0.5 X10'3 (0-0.9); MONOCYTES % (AUTO) 3.5 % (2-12); NEUTROPHILS # (AUTO) 13.1 X10'3 (1.8-7.7); NEUTROPHILS % (AUTO) 90.8 % (42-75); PLATELET COUNT 55 X10'3 (140-440); RED BLOOD COUNT 3.06 X10'6 (4.70-6.10); RED CELL DISTRIBUTION WIDTH 14.2 % (11.5-14.5); WHITE BLOOD COUNT 14.4 X10'3 (4.5-11.0)
[2024-12-30 03:06] LABS: ALANINE AMINOTRANSFERASE 122 U/L (12-78); ALBUMIN 4.4 G/DL (3.4-5.0); ALBUMIN/GLOBULIN RATIO 1.3 (1.1-1.5); ALKALINE PHOSPHATASE 82 IU/L (46-116); ANION GAP 14 (8-16); ASPARTATE AMINO TRANSFERASE 65 U/L (10-37); BILIRUBIN,TOTAL 3.1 MG/DL (0.1-1.0); BLOOD UREA NITROGEN 44 MG/DL (7-18); BUN/CREATININE RATIO 18.2 (10.0-20.0); CALCIUM 7.2 MG/DL (8.5-10.1); CHLORIDE 107 MMOL/L (99-107); CREATININE 2.42 MG/DL (0.60-1.10); GLUCOSE 326 MG/DL (70-104); PREALBUMIN 10.7 MG/DL (19-36); SODIUM 146 MMOL/L (135-145); TOTAL PROTEIN 7.7 G/DL (6.4-8.2); eCRCL 39 ML/MIN; eGFR 29 ML/MIN
[2024-12-30 03:07] LABS: POTASSIUM 4.2 MMOL/L (3.5-5.1)
[2024-12-30 03:46] LABS: ABG HCO3 21.9 mmol/L (21.0-28.0); ABG OXYGEN SATURATION 95.9 % (94.0-98.0); ABG PCO2 (T) 34.3 mmHg (35.0-48.0); ABG PH (T) 7.423 (7.350-7.450); ABG PO2 (T) 79.9 mmHg (83.0-108.0); FCOHb 0.2 % (0.5-1.5); FHHb 4.1 % (0.0-5.0); FMetHb 0.3 % (0.0-1.5); FO2Hb 95.4 % (94.0-98.0); MODE PRVC; PATIENT TEMPERATURE 37.2; PEEP 10 cm H2O; RESPIRATORY RATE 18 b/min; TIDAL VOLUME 300 mL; TOTAL HEMOGLOBIN 10.6 G/dl (13.5-17.5)
[2024-12-30 08:34] LABS: EOSINOPHILS # (AUTO) 0.1 X10'3 (0-0.9); EOSINOPHILS % (AUTO) 0.4 % (0-6); HEMOGLOBIN 10.1 g/dl (14.0-17.9); LYMPHOCYTES # (AUTO) 0.6 X10'3 (1.1-4.8)
[2024-12-30 08:36] LABS: BASOPHILS % (AUTO) 0 % (0-1); HEMATOCRIT 29.9 % (42.0-52.0); LYMPHOCYTES % (AUTO) 4.4 % (21-51); MEAN CORPUSCULAR HEMOGLOBIN 32.9 PG (27.0-31.0); MEAN CORPUSCULAR HGB CONC 33.8 g/dL (33.0-36.5); MEAN CORPUSCULAR VOLUME 97.4 FL (78-98); MONOCYTES # (AUTO) 0.8 X10'3 (0-0.9); MONOCYTES % (AUTO) 5.4 % (2-12); NEUTROPHILS # (AUTO) 13.3 X10'3 (1.8-7.7); NEUTROPHILS % (AUTO) 89.8 % (42-75); PLATELET COUNT 58 X10'3 (140-440); RED BLOOD COUNT 3.07 X10'6 (4.70-6.10); RED CELL DISTRIBUTION WIDTH 13.9 % (11.5-14.5); WHITE BLOOD COUNT 14.8 X10'3 (4.5-11.0)
[2024-12-30 08:52] LABS: NUCLEATED RED BLOOD CELLS 2 /100WBC (0-0); PLATELET ESTIMATE DECREASED; TOTAL CELLS COUNTED 100
[2024-12-30 08:53] LABS: LARGE PLATELETS FEW; POLYCHROMASIA FEW
[2024-12-30 08:59] LABS: ALBUMIN 4.6 G/DL (3.4-5.0); ANION GAP 17 (8-16); BLOOD UREA NITROGEN 49 MG/DL (7-18); BUN/CREATININE RATIO 19.4 (10.0-20.0); CALCIUM 7.2 MG/DL (8.5-10.1); CHLORIDE 107 MMOL/L (99-107); CREATININE 2.53 MG/DL (0.60-1.10); GLUCOSE 369 MG/DL (70-104); MAGNESIUM 2.1 MG/DL (1.5-2.4); PHOSPHORUS 3.1 MG/DL (2.3-4.5); POTASSIUM 4.3 MMOL/L (3.5-5.1); SODIUM 147 MMOL/L (135-145); TOTAL CARBON DIOXIDE 23.4 MMOL/L (24-32); eCRCL 38 ML/MIN; eGFR 28 ML/MIN
[2024-12-30 10:37] LABS: ABG BASE EXCESS -3.9 mmol/L (-2.0-3.0); ABG HCO3 20.1 mmol/L (21.0-28.0); ABG OXYGEN SATURATION 96.2 % (94.0-98.0); ABG PCO2 (T) 32.2 mmHg (35.0-48.0); ABG PH (T) 7.413 (7.350-7.450); ABG PO2 (T) 81.1 mmHg (83.0-108.0); ALLEN'S TEST POSITIVE; FCOHb 0.4 % (0.5-1.5); FHHb 3.8 % (0.0-5.0); FMetHb 0.3 % (0.0-1.5); FO2Hb 95.5 % (94.0-98.0); MODE VENT - AC; PEEP 10 cm H2O; RESPIRATORY RATE 18 b/min; TIDAL VOLUME 300 mL; TOTAL HEMOGLOBIN 9.4 G/dl (13.5-17.5)
[2024-12-30] MEDS ORDERED: CISatracurium **Bolus** 2 mg/ml inj IV ONE (11:15)
[2024-12-30] MEDS: CISatracurium besylate inj. 100 MG in normal saline 100ml IV soln 90 ML IV PRN (11:57)
[2024-12-30] MEDS: aspirin 81mg tab.chew OGT SCH (12:40)
[2024-12-30 15:25] LABS: BASOPHILS % (AUTO) 0.2 % (0-1); EOSINOPHILS % (AUTO) 0.2 % (0-6); HEMATOCRIT 31.7 % (42.0-52.0); HEMOGLOBIN 10.4 g/dl (14.0-17.9); LYMPHOCYTES # (AUTO) 0.6 X10'3 (1.1-4.8); LYMPHOCYTES % (AUTO) 3.3 % (21-51); MEAN CORPUSCULAR HEMOGLOBIN 32.4 PG (27.0-31.0); MEAN CORPUSCULAR HGB CONC 32.8 g/dL (33.0-36.5); MEAN CORPUSCULAR VOLUME 98.7 FL (78-98); MEAN PLATELET VOLUME 11.4 FL (7.4-10.4); MONOCYTES # (AUTO) 0.8 X10'3 (0-0.9); MONOCYTES % (AUTO) 4.6 % (2-12); NEUTROPHILS # (AUTO) 16.3 X10'3 (1.8-7.7); NEUTROPHILS % (AUTO) 91.7 % (42-75); PLATELET COUNT 70 X10'3 (140-440); RED BLOOD COUNT 3.21 X10'6 (4.70-6.10); RED CELL DISTRIBUTION WIDTH 14.6 % (11.5-14.5); WHITE BLOOD COUNT 17.7 X10'3 (4.5-11.0)
[2024-12-30 15:48] LABS: ALBUMIN 4.6 G/DL (3.4-5.0); ANION GAP 13 (8-16); BLOOD UREA NITROGEN 52 MG/DL (7-18); BUN/CREATININE RATIO 21.1 (10.0-20.0); CALCIUM 7.2 MG/DL (8.5-10.1); CHLORIDE 106 MMOL/L (99-107); CREATININE 2.46 MG/DL (0.60-1.10); GLUCOSE 384 MG/DL (70-104); MAGNESIUM 2.1 MG/DL (1.5-2.4); SODIUM 148 MMOL/L (135-145); TOTAL CARBON DIOXIDE 28.6 MMOL/L (24-32); eCRCL 39 ML/MIN; eGFR 28 ML/MIN
[2024-12-30 16:37] LABS: ABG BASE EXCESS -6.8 mmol/L (-2.0-3.0); ABG HCO3 22.2 mmol/L (21.0-28.0); ABG OXYGEN SATURATION 93.7 % (94.0-98.0); ABG PCO2 (T) 65.7 mmHg (35.0-48.0); ABG PH (T) 7.152 (7.350-7.450); ABG PO2 (T) 90.3 mmHg (83.0-108.0); ALLEN'S TEST POSITIVE; FCOHb 0.3 % (0.5-1.5); FHHb 6.3 % (0.0-5.0); FMetHb 0.1 % (0.0-1.5); FO2Hb 93.3 % (94.0-98.0); MODE VENT - AC; PATIENT TEMPERATURE 37.7; PEEP 10 cm H2O; RESPIRATORY RATE 18 b/min; TIDAL VOLUME 400 mL; TOTAL HEMOGLOBIN 10.7 G/dl (13.5-17.5)
[2024-12-30 19:55] LABS: ABG BASE EXCESS -3.2 mmol/L (-2.0-3.0); ABG HCO3 24.6 mmol/L (21.0-28.0); ABG OXYGEN SATURATION 96.2 % (94.0-98.0); ABG PCO2 (T) 55.3 mmHg (35.0-48.0); ABG PH (T) 7.261 (7.350-7.450); ABG PO2 (T) 87.1 mmHg (83.0-108.0); FCOHb 0.6 % (0.5-1.5); FHHb 3.8 % (0.0-5.0); FMetHb 0.3 % (0.0-1.5); FO2Hb 95.3 % (94.0-98.0); MODE VENT - PRVC; PATIENT TEMPERATURE 36.2; PEEP 10 cm H2O; RESPIRATORY RATE 22 b/min; TIDAL VOLUME 400 mL; TOTAL HEMOGLOBIN 11.4 G/dl (13.5-17.5)
[2024-12-30 20:13] LABS: EOSINOPHILS % (AUTO) 0.3 % (0-6); HEMOGLOBIN 10.4 g/dl (14.0-17.9); LYMPHOCYTES # (AUTO) 0.6 X10'3 (1.1-4.8); MEAN CORPUSCULAR VOLUME 98.2 FL (78-98); PLATELET COUNT 61 X10'3 (140-440); WHITE BLOOD COUNT 16.4 X10'3 (4.5-11.0)
[2024-12-30 20:14] LABS: BASOPHILS % (AUTO) 0.1 % (0-1); HEMATOCRIT 31.6 % (42.0-52.0); LYMPHOCYTES % (AUTO) 3.7 % (21-51); MEAN CORPUSCULAR HEMOGLOBIN 32.4 PG (27.0-31.0); MEAN PLATELET VOLUME 9.3 FL (7.4-10.4); MONOCYTES # (AUTO) 0.8 X10'3 (0-0.9); MONOCYTES % (AUTO) 4.9 % (2-12); NEUTROPHILS # (AUTO) 14.9 X10'3 (1.8-7.7); RED BLOOD COUNT 3.22 X10'6 (4.70-6.10); RED CELL DISTRIBUTION WIDTH 14.8 % (11.5-14.5)
[2024-12-30 20:24] LABS: ALBUMIN 5.1 G/DL (3.4-5.0); ANION GAP 10 (8-16); BLOOD UREA NITROGEN 51 MG/DL (7-18); BUN/CREATININE RATIO 20.7 (10.0-20.0); CALCIUM 7.2 MG/DL (8.5-10.1); CHLORIDE 105 MMOL/L (99-107); CREATININE 2.46 MG/DL (0.60-1.10); GLUCOSE 360 MG/DL (70-104); MAGNESIUM 2.1 MG/DL (1.5-2.4); PHOSPHORUS 5.3 MG/DL (2.3-4.5); POTASSIUM 4.9 MMOL/L (3.5-5.1); SODIUM 141 MMOL/L (135-145); TOTAL CARBON DIOXIDE 26.1 MMOL/L (24-32); eCRCL 39 ML/MIN; eGFR 28 ML/MIN
[2024-12-31] VITALS (37 sets, daily range): BP systolic 94–138; BP diastolic 40–63; PULSE 105–128; RESP 22–28; O2SAT 90–99
[2024-12-31 02:38] LABS: EOSINOPHILS # (AUTO) 0.1 X10'3 (0-0.9); LYMPHOCYTES # (AUTO) 0.5 X10'3 (1.1-4.8); NEUTROPHILS % (AUTO) 90.3 % (42-75); RED BLOOD COUNT 3.17 X10'6 (4.70-6.10)
[2024-12-31 02:41] LABS: BASOPHILS % (AUTO) 0 % (0-1); EOSINOPHILS % (AUTO) 0.5 % (0-6); HEMATOCRIT 31.2 % (42.0-52.0); HEMOGLOBIN 10.5 g/dl (14.0-17.9); LYMPHOCYTES % (AUTO) 3.7 % (21-51); MEAN CORPUSCULAR HGB CONC 33.5 g/dL (33.0-36.5); MEAN CORPUSCULAR VOLUME 98.6 FL (78-98); MONOCYTES # (AUTO) 0.8 X10'3 (0-0.9); MONOCYTES % (AUTO) 5.5 % (2-12); NEUTROPHILS # (AUTO) 13.2 X10'3 (1.8-7.7); PLATELET COUNT 69 X10'3 (140-440); RED CELL DISTRIBUTION WIDTH 14.6 % (11.5-14.5); WHITE BLOOD COUNT 14.6 X10'3 (4.5-11.0)
[2024-12-31 02:56] LABS: ALANINE AMINOTRANSFERASE 85 U/L (12-78); ALBUMIN 5.7 G/DL (3.4-5.0); ALBUMIN/GLOBULIN RATIO 1.6 (1.1-1.5); ALKALINE PHOSPHATASE 94 IU/L (46-116); ANION GAP 14 (8-16); ASPARTATE AMINO TRANSFERASE 62 U/L (10-37); BILIRUBIN,TOTAL 3.8 MG/DL (0.1-1.0); BLOOD UREA NITROGEN 53 MG/DL (7-18); BUN/CREATININE RATIO 23.1 (10.0-20.0); CALCIUM 7.8 MG/DL (8.5-10.1); CHLORIDE 106 MMOL/L (99-107); CREATININE 2.29 MG/DL (0.60-1.10); GLUCOSE 384 MG/DL (70-104); MAGNESIUM 2.1 MG/DL (1.5-2.4); POTASSIUM 4.9 MMOL/L (3.5-5.1); SODIUM 146 MMOL/L (135-145); TOTAL CARBON DIOXIDE 26.2 MMOL/L (24-32); TOTAL PROTEIN 9.2 G/DL (6.4-8.2); eCRCL 42 ML/MIN; eGFR 31 ML/MIN
[2024-12-31 04:08] LABS: ABG BASE EXCESS -4.8 mmol/L (-2.0-3.0); ABG HCO3 22.9 mmol/L (21.0-28.0); ABG OXYGEN SATURATION 96.2 % (94.0-98.0); ABG PCO2 (T) 52.9 mmHg (35.0-48.0); ABG PH (T) 7.251 (7.350-7.450); FCOHb 0.6 % (0.5-1.5); FHHb 3.8 % (0.0-5.0); FMetHb 0.3 % (0.0-1.5); FO2Hb 95.3 % (94.0-98.0); MODE VENT - PRVC; PATIENT TEMPERATURE 36.4; PEEP 10 cm H2O; RESPIRATORY RATE 22 b/min; TIDAL VOLUME 400 mL; TOTAL HEMOGLOBIN 11.4 G/dl (13.5-17.5)
[2024-12-31 05:14] LABS: HBSAG SCREEN Negative (Negative); HEP B SURF AB Non Reactive (.)
[2024-12-31 08:16] LABS: BASOPHILS % (AUTO) 0.1 % (0-1); HEMOGLOBIN 10.8 g/dl (14.0-17.9); LYMPHOCYTES # (AUTO) 0.5 X10'3 (1.1-4.8); MEAN CORPUSCULAR VOLUME 98.8 FL (78-98); WHITE BLOOD COUNT 17.9 X10'3 (4.5-11.0)
[2024-12-31 08:18] LABS: EOSINOPHILS % (AUTO) 0.2 % (0-6); HEMATOCRIT 33.2 % (42.0-52.0); LYMPHOCYTES % (AUTO) 2.8 % (21-51); MEAN CORPUSCULAR HEMOGLOBIN 32.1 PG (27.0-31.0); MEAN CORPUSCULAR HGB CONC 32.5 g/dL (33.0-36.5); MEAN PLATELET VOLUME 11.3 FL (7.4-10.4); MONOCYTES # (AUTO) 1.1 X10'3 (0-0.9); MONOCYTES % (AUTO) 6.1 % (2-12); NEUTROPHILS # (AUTO) 16.3 X10'3 (1.8-7.7); NEUTROPHILS % (AUTO) 90.8 % (42-75); PLATELET COUNT 82 X10'3 (140-440); RED BLOOD COUNT 3.37 X10'6 (4.70-6.10); RED CELL DISTRIBUTION WIDTH 14.9 % (11.5-14.5)
[2024-12-31] MEDS: PERFLUTREN PROTEIN-A MICROSPHR (Optison) 0.22 MG/ML 3ML VIAL IV ONE (08:25)
[2024-12-31 08:31] LABS: ALBUMIN 5.2 G/DL (3.4-5.0); ANION GAP 15 (8-16); BLOOD UREA NITROGEN 53 MG/DL (7-18); BUN/CREATININE RATIO 22.3 (10.0-20.0); CALCIUM 8.1 MG/DL (8.5-10.1); CHLORIDE 104 MMOL/L (99-107); CREATININE 2.38 MG/DL (0.60-1.10); MAGNESIUM 2.6 MG/DL (1.5-2.4); PHOSPHORUS 5.6 MG/DL (2.3-4.5); POTASSIUM 4.9 MMOL/L (3.5-5.1); SODIUM 142 MMOL/L (135-145); TOTAL CARBON DIOXIDE 22.8 MMOL/L (24-32); eCRCL 40 ML/MIN; eGFR 30 ML/MIN
[2024-12-31 09:03] LABS: PLATELET ESTIMATE DECREASED; TOTAL CELLS COUNTED 100
[2024-12-31 09:08] LABS: GLUCOSE 429 MG/DL (70-104)
[2024-12-31 09:12] LABS: ABG BASE EXCESS -7.9 mmol/L (-2.0-3.0); ABG HCO3 18.9 mmol/L (21.0-28.0); ABG OXYGEN SATURATION 95.5 % (94.0-98.0); ABG PCO2 (T) 42.1 mmHg (35.0-48.0); ABG PH (T) 7.266 (7.350-7.450); ABG PO2 (T) 78.6 mmHg (83.0-108.0); FCOHb 0.7 % (0.5-1.5); FHHb 4.5 % (0.0-5.0); FMetHb 0.3 % (0.0-1.5); FO2Hb 94.5 % (94.0-98.0); MODE VENT - AC; PATIENT TEMPERATURE 36.2; PEEP 10 cm H2O; RESPIRATORY RATE 26 b/min; TIDAL VOLUME 400 mL; TOTAL HEMOGLOBIN 11.2 G/dl (13.5-17.5)
[2024-12-31 09:20] LABS: OXYGEN SATURATION (MIXED VEN) 70.6 % (60-80); PO2 MIXED VENOUS (TEMP COR) 37.4 mmHg (35-46)
[2024-12-31] MEDS ORDERED: dextrose 50%-water 50ml dispensing syringe IV PRN (11:55)
[2024-12-31] MEDS: heparin 1,000 units/ml 10ml inj HE ONE ×2 (11:57→11:58)
[2024-12-31] MEDS: Insulin Reg/NS 100units/100mL 100 ML IV SCH (12:56)
[2024-12-31] MEDS: INSULIN LISPRO 100 UNIT/ML INSULN.PEN MULTI-DOSE SQ SCH (13:00)
[2024-12-31] MEDS: MEROPENEM 500MG/50ML-NS IVPB 50 ML IV SCH (20:53)
[2025-01-01] VITALS (38 sets, daily range): BP systolic 82–140; BP diastolic 34–58; PULSE 109–123; RESP 25–27; TEMP 101.6; O2SAT 82–98
[2025-01-01 02:55] LABS: BASOPHILS % (AUTO) 0.3 % (0-1); EOSINOPHILS # (AUTO) 0.1 X10'3 (0-0.9); EOSINOPHILS % (AUTO) 0.5 % (0-6); HEMOGLOBIN 9.7 g/dl (14.0-17.9); LYMPHOCYTES # (AUTO) 0.9 X10'3 (1.1-4.8); LYMPHOCYTES % (AUTO) 6.1 % (21-51); MEAN CORPUSCULAR HEMOGLOBIN 32.1 PG (27.0-31.0); MEAN CORPUSCULAR HGB CONC 32.2 g/dL (33.0-36.5); MEAN CORPUSCULAR VOLUME 99.7 FL (78-98); MEAN PLATELET VOLUME 11.4 FL (7.4-10.4); MONOCYTES # (AUTO) 0.6 X10'3 (0-0.9); MONOCYTES % (AUTO) 4.3 % (2-12); NEUTROPHILS # (AUTO) 12.8 X10'3 (1.8-7.7); NEUTROPHILS % (AUTO) 88.8 % (42-75); PLATELET COUNT 111 X10'3 (140-440); RED BLOOD COUNT 3.01 X10'6 (4.70-6.10); RED CELL DISTRIBUTION WIDTH 15.2 % (11.5-14.5); WHITE BLOOD COUNT 14.4 X10'3 (4.5-11.0)
[2025-01-01 03:11] LABS: ALANINE AMINOTRANSFERASE 60 U/L (12-78); ALBUMIN 3.6 G/DL (3.4-5.0); ALBUMIN/GLOBULIN RATIO 1.1 (1.1-1.5); ALKALINE PHOSPHATASE 92 IU/L (46-116); AMYLASE 78 U/L (25-115); ANION GAP 14 (8-16); ASPARTATE AMINO TRANSFERASE 50 U/L (10-37); BILIRUBIN,TOTAL 2.8 MG/DL (0.1-1.0); BLOOD UREA NITROGEN 101 MG/DL (7-18); BUN/CREATININE RATIO 24.2 (10.0-20.0); CALCIUM 6.2 MG/DL (8.5-10.1); CHLORIDE 118 MMOL/L (99-107); CREATININE 4.18 MG/DL (0.60-1.10); GLUCOSE 142 MG/DL (70-104); LIPASE 56 U/L (16-77); MAGNESIUM 2.4 MG/DL (1.5-2.4); PHOSPHORUS 7.8 MG/DL (2.3-4.5); POTASSIUM 4.9 MMOL/L (3.5-5.1); TOTAL CARBON DIOXIDE 23.8 MMOL/L (24-32); TOTAL PROTEIN 6.9 G/DL (6.4-8.2); eCRCL 23 ML/MIN; eGFR 15 ML/MIN
[2025-01-01 03:22] LABS: SODIUM 156 MMOL/L (135-145)
[2025-01-01 04:01] LABS: PLATELET ESTIMATE DECREASED; TOTAL CELLS COUNTED 100
[2025-01-01 04:17] LABS: ABG BASE EXCESS -8.9 mmol/L (-2.0-3.0); ABG HCO3 18.6 mmol/L (21.0-28.0); ABG OXYGEN SATURATION 96.6 % (94.0-98.0); ABG PCO2 (T) 46.8 mmHg (35.0-48.0); ABG PH (T) 7.216 (7.350-7.450); ABG PO2 (T) 96.5 mmHg (83.0-108.0); FHHb 3.4 % (0.0-5.0); FMetHb 0.3 % (0.0-1.5); FO2Hb 96.3 % (94.0-98.0); MODE CMV PRVC IT 0.6; PEEP 10 cm H2O; RESPIRATORY RATE 26 b/min; TIDAL VOLUME 400 mL; TOTAL HEMOGLOBIN 10.2 G/dl (13.5-17.5)
[2025-01-01] MEDS ORDERED: vasopressin inj. 40 UNIT in dextrose 5%-water 50ml 38 ML IV SCH (09:25)
[2025-01-01 10:36] LABS: ALBUMIN 3.2 G/DL (3.4-5.0); ANION GAP 15 (8-16); BLOOD UREA NITROGEN 111 MG/DL (7-18); CHLORIDE 115 MMOL/L (99-107); CREATININE 5.29 MG/DL (0.60-1.10); GLUCOSE 152 MG/DL (70-104); SODIUM 153 MMOL/L (135-145); TOTAL CARBON DIOXIDE 22.7 MMOL/L (24-32); eCRCL 18 ML/MIN; eGFR 12 ML/MIN
[2025-01-01] MEDS: vasopressin inj. 40 UNIT in normal saline 50ml IV soln 38 ML IV SCH (10:36)
[2025-01-01 10:44] LABS: CALCIUM 5.9 MG/DL (8.5-10.1)
[2025-01-01] MEDS ORDERED: Duosol 4K/3 Ca (w/calcium) 5,000 ML HE STA (10:50)
[2025-01-01] MEDS ORDERED: magnesium sulf-water 4G/100mL 100 ML IV PRN (10:50)
[2025-01-01] MEDS ORDERED: sodium phosphate inj. 30 MMOL in dextrose 5%-water 250 ML IV PRN (10:50)
[2025-01-01] MEDS ORDERED: potassium Cl 40MEQ/270ML bag 270 ML IV PRN (10:50)
[2025-01-01 11:14] LABS: ABG BASE EXCESS -11.5 mmol/L (-2.0-3.0); ABG HCO3 20.8 mmol/L (21.0-28.0); ABG OXYGEN SATURATION 79.2 % (94.0-98.0); ABG PCO2 (T) 100.6 mmHg (35.0-48.0); ABG PH (T) 6.947 (7.350-7.450); FCOHb 0.4 % (0.5-1.5); FHHb 20.7 % (0.0-5.0); FMetHb 0.3 % (0.0-1.5); FO2Hb 78.6 % (94.0-98.0); MODE PRVC; PATIENT TEMPERATURE 38.9; PEEP 18 cm H2O; RESPIRATORY RATE 26 b/min; TIDAL VOLUME 250 mL
[2025-01-01] MEDS: BICARB DIALYSIS 4K/3 Ca2+sol 5,000 ML HE SCH (12:01)
[2025-01-01] MEDS: vancomycin 1,750 MG in NS 350ml IV soln IV ONE (12:56)
[2025-01-01] MEDS: NORepinephrine 32 MG in normal saline 250ml IV soln 218 ML IV SCH (12:59)
[2025-01-01 14:17] LABS: ABG BASE EXCESS -7.1 mmol/L (-2.0-3.0); ABG HCO3 22.4 mmol/L (21.0-28.0); ABG PCO2 (T) 71.2 mmHg (35.0-48.0); ABG PH (T) 7.125 (7.350-7.450); ABG PO2 (T) 85.9 mmHg (83.0-108.0); FCOHb 0.5 % (0.5-1.5); FMetHb 0.3 % (0.0-1.5); FO2Hb 93.2 % (94.0-98.0); MODE PRVC; PATIENT TEMPERATURE 38.4; PEEP 18 cm H2O; RESPIRATORY RATE 26 b/min; TIDAL VOLUME 325 mL; TOTAL HEMOGLOBIN 11.1 G/dl (13.5-17.5)
[2025-01-01 14:48] LABS: ALANINE AMINOTRANSFERASE 49 U/L (12-78); ALBUMIN 3.2 G/DL (3.4-5.0); ALBUMIN/GLOBULIN RATIO 0.9 (1.1-1.5); ALKALINE PHOSPHATASE 102 IU/L (46-116); ANION GAP 13 (8-16); ASPARTATE AMINO TRANSFERASE 64 U/L (10-37); BILIRUBIN,TOTAL 2.4 MG/DL (0.1-1.0); BLOOD UREA NITROGEN 102 MG/DL (7-18); BUN/CREATININE RATIO 21.5 (10.0-20.0); CHLORIDE 112 MMOL/L (99-107); CREATININE 4.75 MG/DL (0.60-1.10); GLUCOSE 142 MG/DL (70-104); SODIUM 151 MMOL/L (135-145); TOTAL CARBON DIOXIDE 25.6 MMOL/L (24-32); TOTAL PROTEIN 6.9 G/DL (6.4-8.2); eCRCL 20 ML/MIN; eGFR 13 ML/MIN
[2025-01-01 14:50] LABS: POTASSIUM 6.6 MMOL/L (3.5-5.1)
[2025-01-01 15:42] LABS: ALANINE AMINOTRANSFERASE 51 U/L (12-78); ALBUMIN 3.2 G/DL (3.4-5.0); ALBUMIN/GLOBULIN RATIO 0.9 (1.1-1.5); ALKALINE PHOSPHATASE 106 IU/L (46-116); ANION GAP 13 (8-16); ASPARTATE AMINO TRANSFERASE 67 U/L (10-37); BILIRUBIN,TOTAL 2.4 MG/DL (0.1-1.0); BLOOD UREA NITROGEN 98 MG/DL (7-18); BUN/CREATININE RATIO 20.2 (10.0-20.0); CHLORIDE 111 MMOL/L (99-107); CREATININE 4.84 MG/DL (0.60-1.10); GLUCOSE 151 MG/DL (70-104); SODIUM 150 MMOL/L (135-145); TOTAL CARBON DIOXIDE 25.6 MMOL/L (24-32); TOTAL PROTEIN 6.9 G/DL (6.4-8.2); eCRCL 20 ML/MIN; eGFR 13 ML/MIN
[2025-01-01 15:54] LABS: POTASSIUM 6.5 MMOL/L (3.5-5.1)
[2025-01-01 16:31] LABS: ALANINE AMINOTRANSFERASE 53 U/L (12-78); ALBUMIN 3.2 G/DL (3.4-5.0); ALBUMIN/GLOBULIN RATIO 0.8 (1.1-1.5); ALKALINE PHOSPHATASE 106 IU/L (46-116); ANION GAP 14 (8-16); ASPARTATE AMINO TRANSFERASE 66 U/L (10-37); BILIRUBIN,TOTAL 2.5 MG/DL (0.1-1.0); BLOOD UREA NITROGEN 97 MG/DL (7-18); BUN/CREATININE RATIO 20.6 (10.0-20.0); CALCIUM 6.2 MG/DL (8.5-10.1); CHLORIDE 110 MMOL/L (99-107); CREATININE 4.71 MG/DL (0.60-1.10); GLUCOSE 166 MG/DL (70-104); SODIUM 149 MMOL/L (135-145); TOTAL CARBON DIOXIDE 24.9 MMOL/L (24-32); eCRCL 20 ML/MIN; eGFR 13 ML/MIN
[2025-01-01 16:38] LABS: POTASSIUM 6.5 MMOL/L (3.5-5.1)
[2025-01-01 17:44] LABS: ALANINE AMINOTRANSFERASE 52 U/L (12-78); ALBUMIN 3.3 G/DL (3.4-5.0); ALBUMIN/GLOBULIN RATIO 0.9 (1.1-1.5); ALKALINE PHOSPHATASE 110 IU/L (46-116); ANION GAP 14 (8-16); ASPARTATE AMINO TRANSFERASE 66 U/L (10-37); BILIRUBIN,TOTAL 2.4 MG/DL (0.1-1.0); BLOOD UREA NITROGEN 97 MG/DL (7-18); CHLORIDE 110 MMOL/L (99-107); CREATININE 4.61 MG/DL (0.60-1.10); GLUCOSE 138 MG/DL (70-104); SODIUM 149 MMOL/L (135-145); TOTAL CARBON DIOXIDE 25.5 MMOL/L (24-32); TOTAL PROTEIN 7.1 G/DL (6.4-8.2); eCRCL 21 ML/MIN; eGFR 14 ML/MIN
[2025-01-01 18:44] LABS: ALBUMIN 3.2 G/DL (3.4-5.0); ANION GAP 13 (8-16); BLOOD UREA NITROGEN 91 MG/DL (7-18); BUN/CREATININE RATIO 19.9 (10.0-20.0); CHLORIDE 110 MMOL/L (99-107); CREATININE 4.57 MG/DL (0.60-1.10); GLUCOSE 100 MG/DL (70-104); POTASSIUM 5.8 MMOL/L (3.5-5.1); SODIUM 149 MMOL/L (135-145); TOTAL CARBON DIOXIDE 26.1 MMOL/L (24-32); eCRCL 21 ML/MIN; eGFR 14 ML/MIN
[2025-01-01 18:47] LABS: CALCIUM 5.9 MG/DL (8.5-10.1)
[2025-01-01] MEDS: bicarb dialysis sol 2K+/3 Ca2+ 5,000 ML HE SCH (19:36)
[2025-01-01 20:12] LABS: BASOPHILS # (AUTO) 0.1 X10'3 (0-0.2); EOSINOPHILS # (AUTO) 0.1 X10'3 (0-0.9); HEMOGLOBIN 9.8 g/dl (14.0-17.9); MEAN CORPUSCULAR HGB CONC 31.4 g/dL (33.0-36.5); MEAN CORPUSCULAR VOLUME 100.9 FL (78-98); PLATELET COUNT 192 X10'3 (140-440)
[2025-01-01 20:13] LABS: BASOPHILS % (AUTO) 0.4 % (0-1); EOSINOPHILS % (AUTO) 0.2 % (0-6); HEMATOCRIT 31.1 % (42.0-52.0); LYMPHOCYTES # (AUTO) 1.4 X10'3 (1.1-4.8); LYMPHOCYTES % (AUTO) 5.1 % (21-51); MEAN CORPUSCULAR HEMOGLOBIN 31.7 PG (27.0-31.0); MEAN PLATELET VOLUME 11.4 FL (7.4-10.4); MONOCYTES # (AUTO) 1.7 X10'3 (0-0.9); MONOCYTES % (AUTO) 6.2 % (2-12); NEUTROPHILS # (AUTO) 24.5 X10'3 (1.8-7.7); NEUTROPHILS % (AUTO) 88.1 % (42-75); RED BLOOD COUNT 3.08 X10'6 (4.70-6.10); RED CELL DISTRIBUTION WIDTH 15.5 % (11.5-14.5)
[2025-01-01 20:20] LABS: WHITE BLOOD COUNT 27.8 X10'3 (4.5-11.0)
[2025-01-01 20:24] LABS: ALBUMIN 3.2 G/DL (3.4-5.0); ANION GAP 11 (8-16); BLOOD UREA NITROGEN 86 MG/DL (7-18); CALCIUM CVVH 6.9 MG/DL (8.5-10.1); CHLORIDE 109 MMOL/L (99-107); GLUCOSE 124 MG/DL (70-104); PHOSPHORUS 7.6 MG/DL (2.3-4.5); SODIUM 146 MMOL/L (135-145); TOTAL CARBON DIOXIDE 26.1 MMOL/L (24-32); eGFR 15 ML/MIN
[2025-01-01 20:25] LABS: POTASSIUM 6.2 MMOL/L (3.5-5.1)
[2025-01-01 21:01] LABS: NUCLEATED RED BLOOD CELLS 3 /100WBC (0-0); PLATELET ESTIMATE NORMAL; TOTAL CELLS COUNTED 100
[2025-01-01] MEDS: calcium chloride inj. 1,000 MG in normal saline 100ml IV soln 100 ML IV PRN (22:22)
[2025-01-02] VITALS (23 sets, daily range): BP systolic 98–122; BP diastolic 36–48; PULSE 95–113; RESP 26–27; O2SAT 71–90
[2025-01-02 02:40] LABS: BASOPHILS # (AUTO) 0.1 X10'3 (0-0.2); HEMOGLOBIN 9.9 g/dl (14.0-17.9); MEAN PLATELET VOLUME 11.5 FL (7.4-10.4)
[2025-01-02 02:42] LABS: BASOPHILS % (AUTO) 0.3 % (0-1); EOSINOPHILS % (AUTO) 0.2 % (0-6); HEMATOCRIT 31.5 % (42.0-52.0); LYMPHOCYTES # (AUTO) 1.4 X10'3 (1.1-4.8); LYMPHOCYTES % (AUTO) 5.2 % (21-51); MEAN CORPUSCULAR HEMOGLOBIN 32.1 PG (27.0-31.0); MEAN CORPUSCULAR HGB CONC 31.5 g/dL (33.0-36.5); MEAN CORPUSCULAR VOLUME 102.1 FL (78-98); MONOCYTES # (AUTO) 1.8 X10'3 (0-0.9); MONOCYTES % (AUTO) 6.9 % (2-12); NEUTROPHILS # (AUTO) 23.2 X10'3 (1.8-7.7); NEUTROPHILS % (AUTO) 87.4 % (42-75); PLATELET COUNT 189 X10'3 (140-440); RED BLOOD COUNT 3.08 X10'6 (4.70-6.10); RED CELL DISTRIBUTION WIDTH 16.3 % (11.5-14.5)
[2025-01-02 02:48] LABS: WHITE BLOOD COUNT 26.6 X10'3 (4.5-11.0)
[2025-01-02 02:54] LABS: ALANINE AMINOTRANSFERASE 49 U/L (12-78); ALBUMIN 3.1 G/DL (3.4-5.0); ALBUMIN/GLOBULIN RATIO 0.8 (1.1-1.5); ALKALINE PHOSPHATASE 131 IU/L (46-116); ANION GAP 15 (8-16); ASPARTATE AMINO TRANSFERASE 70 U/L (10-37); BILIRUBIN,TOTAL 2.4 MG/DL (0.1-1.0); BLOOD UREA NITROGEN 78 MG/DL (7-18); BUN/CREATININE RATIO 18.9 (10.0-20.0); CHLORIDE 108 MMOL/L (99-107); CREATININE 4.13 MG/DL (0.60-1.10); GLUCOSE 133 MG/DL (70-104); MAGNESIUM 2.1 MG/DL (1.5-2.4); POTASSIUM 5.8 MMOL/L (3.5-5.1); SODIUM 147 MMOL/L (135-145); TOTAL CARBON DIOXIDE 24.4 MMOL/L (24-32); TOTAL PROTEIN 7.2 G/DL (6.4-8.2); eCRCL 23 ML/MIN; eGFR 16 ML/MIN
[2025-01-02 03:42] LABS: ABG HCO3 22.1 mmol/L (21.0-28.0); ABG OXYGEN SATURATION 89.8 % (94.0-98.0); ABG PCO2 (T) 72.6 mmHg (35.0-48.0); ABG PH (T) 7.104 (7.350-7.450); ABG PO2 (T) 67.6 mmHg (83.0-108.0); FCOHb 0.5 % (0.5-1.5); FHHb 10.1 % (0.0-5.0); FMetHb 0.3 % (0.0-1.5); FO2Hb 89.1 % (94.0-98.0); MODE CMV PRVC IT 06; PATIENT TEMPERATURE 37.6; PEEP 18 cm H2O; RESPIRATORY RATE 26 b/min; TIDAL VOLUME 325 mL; TOTAL HEMOGLOBIN 10.8 G/dl (13.5-17.5)
[2025-01-02 05:46] LABS: ANISOCYTOSIS 1+; NUCLEATED RED BLOOD CELLS 5 /100WBC (0-0); PLATELET ESTIMATE NORMAL; TOTAL CELLS COUNTED 100
[2025-01-02 05:47] LABS: LARGE PLATELETS FEW; POIKILOCYTOSIS FEW
[2025-01-02 08:15] LABS: BASOPHILS # (AUTO) 0.1 X10'3 (0-0.2); EOSINOPHILS # (AUTO) 0.1 X10'3 (0-0.9); HEMATOCRIT 31.7 % (42.0-52.0); HEMOGLOBIN 9.8 g/dl (14.0-17.9); MEAN CORPUSCULAR HEMOGLOBIN 31.5 PG (27.0-31.0); RED BLOOD COUNT 3.12 X10'6 (4.70-6.10)
[2025-01-02 08:17] LABS: BASOPHILS % (AUTO) 0.2 % (0-1); EOSINOPHILS % (AUTO) 0.2 % (0-6); LYMPHOCYTES # (AUTO) 1.4 X10'3 (1.1-4.8); LYMPHOCYTES % (AUTO) 5.2 % (21-51); MEAN CORPUSCULAR VOLUME 101.6 FL (78-98); MEAN PLATELET VOLUME 11.1 FL (7.4-10.4); MONOCYTES # (AUTO) 1.7 X10'3 (0-0.9); MONOCYTES % (AUTO) 6.2 % (2-12); NEUTROPHILS # (AUTO) 24.6 X10'3 (1.8-7.7); NEUTROPHILS % (AUTO) 88.2 % (42-75); PLATELET COUNT 152 X10'3 (140-440); RED CELL DISTRIBUTION WIDTH 16.1 % (11.5-14.5)
[2025-01-02 08:24] LABS: WHITE BLOOD COUNT 27.9 X10'3 (4.5-11.0)
[2025-01-02 08:56] LABS: ANION GAP 16 (8-16); BLOOD UREA NITROGEN 70 MG/DL (7-18); BUN/CREATININE RATIO 18.7 (10.0-20.0); CHLORIDE 105 MMOL/L (99-107); CREATININE 3.75 MG/DL (0.60-1.10); GLUCOSE 143 MG/DL (70-104); PHOSPHORUS 8.1 MG/DL (2.3-4.5); POTASSIUM 5.8 MMOL/L (3.5-5.1); SODIUM 143 MMOL/L (135-145); TOTAL CARBON DIOXIDE 22.5 MMOL/L (24-32); eGFR 18 ML/MIN
[2025-01-02] MEDS: VANCOMYCIN 500MG/WATER FOR INJ (PEG) PREMIX 100 ML IV SCH (14:00)
[2025-01-03 05:08] LABS: LEVETIRACETAM, S 7.2 ug/mL (10.0-40.0)
[2025-01-04] MEDS ORDERED: VANCOMYCIN LEVEL IV ONE (12:30)
== END 2025-01-02 19:07 | DRG 870 ==
LOC: ER 16:36 → ED HOLD 12-24 15:03 → CICU 2S 12-24 18:48
PROVIDERS: ADMIT Internal Medicine Critical Care Medicine; ATTEND Internal Medicine Critical Care Medicine
PROC: BW211ZZ Computerized Tomography (CT Scan) of Abdomen and Pelvis using Low Osmolar Contrast (ICD-10-PCS; 2024-12-23)
PROC: 0BH17EZ Insertion of Endotracheal Airway into Trachea, Via Natural or Artificial Opening (ICD-10-PCS; principal; 2024-12-24)
PROC: 5A1955Z Respiratory Ventilation, Greater than 96 Consecutive Hours (ICD-10-PCS; 2024-12-24)
PROC: 02HV33Z Insertion of Infusion Device into Superior Vena Cava, Percutaneous Approach (ICD-10-PCS; 2024-12-24)
PROC: B548ZZA Ultrasonography of Superior Vena Cava, Guidance (ICD-10-PCS; 2024-12-24)
PROC: 6A550Z3 Pheresis of Plasma, Single (ICD-10-PCS; 2024-12-24)
PROC: 5A1D70Z Performance of Urinary Filtration, Intermittent, Less than 6 Hours Per Day (ICD-10-PCS; 2024-12-25)
PROC: 5A1D70Z Performance of Urinary Filtration, Intermittent, Less than 6 Hours Per Day (ICD-10-PCS; 2024-12-26)
PROC: 4A10X4Z Monitoring of Central Nervous Electrical Activity, External Approach (ICD-10-PCS; 2024-12-26)
PROC: 5A1D70Z Performance of Urinary Filtration, Intermittent, Less than 6 Hours Per Day (ICD-10-PCS; 2024-12-27)
PROC: 5A1D70Z Performance of Urinary Filtration, Intermittent, Less than 6 Hours Per Day (ICD-10-PCS; 2024-12-28)
PROC: 5A1D70Z Performance of Urinary Filtration, Intermittent, Less than 6 Hours Per Day (ICD-10-PCS; 2024-12-29)
PROC: 5A1D70Z Performance of Urinary Filtration, Intermittent, Less than 6 Hours Per Day (ICD-10-PCS; 2024-12-30)
PROC: 6A550Z3 Pheresis of Plasma, Single (ICD-10-PCS; 2025-01-01)
PROC: 5A1D70Z Performance of Urinary Filtration, Intermittent, Less than 6 Hours Per Day (ICD-10-PCS; 2025-01-02)
DX: A41.9 Sepsis, unspecified organism (principal); I63.9 Cerebral infarction, unspecified; J80 Acute respiratory distress syndrome; N17.0 Acute kidney failure with tubular necrosis; R65.21 Severe sepsis with septic shock; J18.9 Pneumonia, unspecified organism; K85.91 Acute pancreatitis with uninfected necrosis, unspecified; Z20.822 Contact with and (suspected) exposure to COVID-19; I21.4 Non-ST elevation (NSTEMI) myocardial infarction; M62.82 Rhabdomyolysis; E87.20 Acidosis, unspecified; G81.94 Hemiplegia, unspecified affecting left nondominant side; G93.1 Anoxic brain damage, not elsewhere classified; E11.9 Type 2 diabetes mellitus without complications; D69.6 Thrombocytopenia, unspecified; R56.9 Unspecified convulsions; E83.51 Hypocalcemia; E87.5 Hyperkalemia
CPT/HCPCS: 20950; 31500; 36415; 36556; 36600; 70450; 70496; 70498; 71045; 71250; 74176; 74177; 80048; 80053; 80061; 80069; 80177; 80305; 80320; 81001; 82140; 82150; 82330; 82550; 82553; 82800; 82803; 82810; 82948; 83036; 83605; 83690; 83735; 83874; 83880; 84100; 84134; 84145; 84484; 85007; 85018; 85025; 85379; 85384; 85610; 85730; 86140; 86706; 87040; 87070; 87081; 87340; 87502; 87503; 87811; 93005; 93306; 93308; 94002; 94003; 94640; 94760; 94799; 95720; 99291; A4333; A5200; A6196; A6212; A6213; A6250; A6258; A6449; A7015; C1751; E1594; G0378; J0131; J0330; J0610; J0692; J0744; J1644; J1815; J1953; J2060; J2185; J2250; J2470; J2543; J2704; J3010; J3370; J3372; J3475; J3480; J3490; J7030; J7040; J7050; J7060; J7070; J7120; J7131; P9047; Q9967